=== PATIENT | female | born 1960 | race African-American/Black ===

== ENCOUNTER 2018-09-14 15:39 | Inpatient (IN) | payer MEDICAID ==
[~2018-09-14] VITALS: Ht 172.7 cm; Wt 75.3 kg
[~2018-09-14 15:39] MED LIST: BENZ2TAB5 PO; CLON0.5T11 PO; KETO120S2 TP; LISI-334 PO; MAGN400O7 PO; MULT1TAB52 PO; OLAN5TAB9 PO; RISP37.5 IM; VITA400C37 PO
--- NOTE | 2018-09-14 16:04 | PHYS DOC ---
Past Medical History Past Medical History: Constipation, Dementia, Hypertension, Schizophrenia Past Surgical History: No Surgical History Additional Past Surgical Histo: Pt denies previous surgery Alcohol Use: None Drug Use: None Adult General Chief Complaint Chief Complaint: GENERAL COMPLAINT HPI HPI Patient is a 58 year old female with history of hypertension, dementia, schizophrenia, who was brought to the ED per EMS from the local residential. Per report from EMS patient had altered mental status change. Patient has schizophrenia and today her behavior was not normal. Patient arrives in the ED with lipstick smeared throughout her face. She is alert and oriented to self only. EMS crew also reports patient was diagnosed with pneumonia and discharged from the hospital a couple days ago. Review of Systems Review of Systems Constitutional: Denies fever or chills [] Eyes: Denies change in visual acuity, redness, or eye pain [] HENT: Denies nasal congestion or sore throat [] Respiratory: Denies cough or shortness of breath [] Cardiovascular: No additional information not addressed in HPI [] GI: Denies abdominal pain, nausea, vomiting, bloody stools or diarrhea [] : Denies dysuria or hematuria [] Musculoskeletal: Denies back pain or joint pain [] Integument: Denies rash or skin lesions [] Neurologic: AMS change. Denies headache, focal weakness or sensory changes [] All other systems were reviewed and found to be within normal limits, except as documented in this note. Current Medications Current Medications Current Medications Medications (Trade) Dose Ordered Sig/Chandu Start Time Stop Time Status Last Admin Dose Admin Acetaminophen (Tylenol) 650 mg PRN Q4HRS PRN 09/14/18 17:15 09/15/18 17:14 Clonidine HCl (Catapres) 0.1 mg PRN Q6HRS PRN 09/14/18 17:15 Labetalol HCl (Normodyne Iv Push) 10 mg 1X ONCE 09/14/18 16:15 09/14/18 16:16 DC Ondansetron HCl (Zofran) 4 mg PRN Q8HRS PRN 09/14/18 17:15 09/15/18 17:14 Piperacillin Sod/ Tazobactam Sod 3.375 gm/Sodium Chloride 50 ml @ 100 mls/hr 1X ONCE 09/14/18 17:15 09/14/18 17:44 Potassium Chloride (Klor-Con) 40 meq 1X ONCE 09/14/18 17:15 09/14/18 17:16 DC Sodium Chloride 1,000 ml @ 75 mls/hr 1X ONCE 09/14/18 17:15 09/15/18 06:34 Vancomycin HCl (Vanco Per Pharmacy) 1 each PRN DAILY PRN 09/14/18 17:15 UNV Vancomycin HCl 1.75 gm/Sodium Chloride 500 ml @ 250 mls/hr 1X ONCE 09/14/18 17:15 09/14/18 19:14 Allergies Allergies Allergies Coded Allergies Type Severity Reaction Last Updated Verified No Known Drug Allergies 08/29/18 No Physical Exam Physical Exam Constitutional: Well developed, well nourished, no acute distress, non-toxic appearance. [] HENT: Normocephalic, atraumatic, bilateral external ears normal, oropharynx moist, no oral exudates, nose normal. [] Eyes: PERRLA, EOMI, conjunctiva normal, no discharge. [] Neck: Normal range of motion, no tenderness, supple, no stridor. [] Cardiovascular:Heart rate regular rhythm, no murmur [] Lungs & Thorax: Diminished breath sounds to posterior lung bases Abdomen: Bowel sounds normal, soft, no tenderness, no masses, no pulsatile masses. [] Skin: Warm, dry, no erythema, no rash. [] Back: No tenderness, no CVA tenderness. [] Extremities: No tenderness, no cyanosis, no clubbing, ROM intact, no edema. [] Neurologic: Alert and oriented X 1, normal motor function, normal sensory function, no focal deficits noted. Cranial nerves II through XII intact Psychologic: Flat affect, has lipstick all over her face Current Patient Data Vital Signs Vital Signs Date Time Temp Pulse Resp B/P (MAP) Pulse Ox O2 Delivery O2 Flow Rate FiO2 09/14/18 15:39 98.9 92 20 221/109 (146) 94 Room Air 98.9 Lab Values Laboratory Tests Test 09/14/18 16:09 09/14/18 16:50 White Blood Count 7.6 x10^3/uL (4.0-11.0) Red Blood Count 3.67 x10^6/uL (3.50-5.40) Hemoglobin 11.7 g/dL (12.0-15.5) L Hematocrit 34.5 % (36.0-47.0) L Mean Corpuscular Volume 94 fL (79-100) Mean Corpuscular Hemoglobin 32 pg (25-35) Mean Corpuscular Hemoglobin Concent 34 g/dL (31-37) Red Cell Distribution Width 15.2 % (11.5-14.5) H Platelet Count 537 x10^3/uL (140-400) H Neutrophils (%) (Auto) 64 % (31-73) Lymphocytes (%) (Auto) 28 % (24-48) Monocytes (%) (Auto) 6 % (0-9) Eosinophils (%) (Auto) 1 % (0-3) Basophils (%) (Auto) 1 % (0-3) Neutrophils # (Auto) 4.8 x10^3uL (1.8-7.7) Lymphocytes # (Auto) 2.1 x10^3/uL (1.0-4.8) Monocytes # (Auto) 0.4 x10^3/uL (0.0-1.1) Eosinophils # (Auto) 0.1 x10^3/uL (0.0-0.7) Basophils # (Auto) 0.1 x10^3/uL (0.0-0.2) Sodium Level 143 mmol/L (136-145) Potassium Level 3.2 mmol/L (3.5-5.1) L Chloride Level 105 mmol/L (98-107) Carbon Dioxide Level 30 mmol/L (21-32) Anion Gap 8 (6-14) Blood Urea Nitrogen 5 mg/dL (7-20) L Creatinine 0.8 mg/dL (0.6-1.0) Estimated GFR (Cockcroft-Gault) 88.5 BUN/Creatinine Ratio 6 (6-20) Glucose Level 98 mg/dL (70-99) Calcium Level 9.5 mg/dL (8.5-10.1) Magnesium Level 1.8 mg/dL (1.8-2.4) Total Bilirubin 0.4 mg/dL (0.2-1.0) Aspartate Amino Transferase (AST) 23 U/L (15-37) Alanine Aminotransferase (ALT) 20 U/L (14-59) Alkaline Phosphatase 105 U/L (46-116) Troponin I Quantitative < 0.017 ng/mL (0.000-0.055) II-Vtw-V-Type Natriuretic Peptide 74 pg/mL (0-124) Total Protein 7.9 g/dL (6.4-8.2) Albumin 2.8 g/dL (3.4-5.0) L Albumin/Globulin Ratio 0.5 (1.0-1.7) L Lipase 101 U/L (73-393) Lactic Acid Level 1.0 mmol/L (0.4-2.0) Laboratory Tests 09/14/18 16:09 Laboratory Tests 09/14/18 16:09 EKG EKG 16:[address] Inman sinus rhythm HR 90 no STEMI[] Radiology/Procedures Radiology/Procedures []PROCEDURE: CT HEAD WO CONTRAST CT HEAD WO CONTRAST dated 09/14/2018 4:23 PM Indication:ALTERED MENTAL STATUS
HX OF DEMENTIA, NO PRIORS Comparison: No comparison is available. Technique: Noncontrast images were performed. One or more of the following individualized dose reduction techniques were utilized for this examination: 1. Automated exposure control 2. Adjustment of the mA and/or kV according to patient size 3. Use of iterative reconstruction technique Findings: There is no apparent intracranial mass, hemorrhage or abnormal extra-axial fluid collection. Mild low-attenuation in the cerebral white matter most commonly relates to chronic small vessel ischemic injury. No other area of abnormal density is seen. The ventricles and basilar cisterns are normally positioned. The sinuses and mastoid air cells appear clear. IMPRESSION: No apparent acute intracranial abnormality. Electronically signed by: Polly Moreno Jr., MD (09/14/2018 4:39 PM) [facility] [place]CTATED and SIGNED BY: POLLY MORENO Jr, MD DATE: 09/14/18 1637 PROCEDURE: PORTABLE CHEST 1V AP chest x-ray COMPARISON: Chest x-ray August 31, 2018. HISTORY: Altered mental status. FINDINGS: Heart size stable. Tortuosity and calcified plaque aortic arch is stable. Right hilar calcified granulomas. Improvement of the right upper and lower lobe pulmonary infiltrates. The mild right pleural effusion is also decreased. However there is increased opacity of the basilar left lower lobe partially obscuring the diaphragm, small left pleural effusion is not excluded. IMPRESSION: 1. Development of left lower lobe basilar pulmonary infiltrate, a small coinciding left pleural effusion is not excluded. 2. Improvement of the right pulmonary infiltrates. Electronically signed by: Maxim Keith MD (09/14/2018 4:16 PM) [facility] DICTATED and SIGNED BY: MAXIM KEITH MD DATE: 09/14/18 1614 Course & Med Decision Making Course & Med Decision Making Pertinent Labs and Imaging studies reviewed. (See chart for details) This is a 4-year-old female patient presenting to the ED today from the residential for altered mental status change. Patient has schizophrenia but is stating her behavior today was not normal. She arrives in the ED with lipstick smeared throughout her face. She is alert and oriented to self only. Her blood pressure was 221/109 HR in the 90s on arrival to the ED, labetalol IV was ordered. CBC with a normal WBC, CMP with potassium of 3.2, patient was given oral potassium replacement. CT of the head was negative for any acute findings, chest x-ray was noted for left lower lobe pneumonia. There is improvement on the right lobe pneumonia. Blood cultures were ordered as well as lactic. Consulted with who accepted patient for admission. Patient was started on vancomycin and Zosyn Dragon Disclaimer Dragon Disclaimer This electronic medical record was generated, in whole or in part, using a voice recognition dictation system. Departure Departure Impression: Primary Impression: Accelerated hypertension Additional Impressions: Pneumonia Altered mental state Disposition: 09 ADMITTED INPATIENT Condition: STABLE Referrals: BRAD CAMPA (PCP) Problem Qualifiers Additional Impressions: Pneumonia Pneumonia type: due to unspecified organism Laterality: left Lung location : lower lobe of lung Qualified Codes: J18.1 - Lobar pneumonia, unspecified organism Altered mental state Altered mental status type: unspecified Qualified Codes: R41.82 - Altered mental status, unspecified MUTINDYAMENG KETTLE TENDER Sep 14, 2018 16:04
[2018-09-14] MEDS ORDERED: LABETALOL 20 MG/4 ML DISP.SYRIN. IVP ONE (16:15)
--- NOTE | 2018-09-14 16:19 | RAD ---
AP chest x-ray COMPARISON: Chest x-ray August 31, 2018. HISTORY: Altered mental status. FINDINGS: Heart size stable. Tortuosity and calcified plaque aortic arch is stable. Right hilar calcified granulomas. Improvement of the right upper and lower lobe pulmonary infiltrates. The mild right pleural effusion is also decreased. However there is increased opacity of the basilar left lower lobe partially obscuring the diaphragm, small left pleural effusion is not excluded. IMPRESSION: 1. Development of left lower lobe basilar pulmonary infiltrate, a small coinciding left pleural effusion is not excluded. 2. Improvement of the right pulmonary infiltrates. Electronically signed by: Juan Pablo Keith MD (09/14/2018 4:16 PM) [facility]
[2018-09-14 16:28] LABS: BASO # 0.1 x10^3/uL (0.0-0.2); BASO % 1 % (0-3); EOS # 0.1 x10^3/uL (0.0-0.7); EOS % 1 % (0-3); HEMATOCRIT 34.5 % (36.0-47.0); HEMOGLOBIN 11.7 g/dL (12.0-15.5); LYMPH # 2.1 x10^3/uL (1.0-4.8); LYMPH % 28 % (24-48); MEAN CORPUSCULAR HEMOGLOBIN 32 pg (25-35); MEAN CORPUSCULAR HGB CONC 34 g/dL (31-37); MEAN CORPUSCULAR VOLUME 94 fL (79-100); MONO # 0.4 x10^3/uL (0.0-1.1); MONO % 6 % (0-9); NEUT # 4.8 x10^3uL (1.8-7.7); NEUT % 64 % (31-73); PLATELET COUNT 537 x10^3/uL (140-400); RED BLOOD COUNT 3.67 x10^6/uL (3.50-5.40); RED CELL DISTRIBUTION WIDTH 15.2 % (11.5-14.5); WHITE BLOOD COUNT 7.6 x10^3/uL (4.0-11.0)
[2018-09-14 16:38] LABS: CALCIUM 9.5 mg/dL (8.5-10.1); CREATININE 0.8 mg/dL (0.6-1.0); GFR 88.5; POTASSIUM 3.2 mmol/L (3.5-5.1)
--- NOTE | 2018-09-14 16:42 | RAD ---
CT HEAD WO CONTRAST dated 09/14/2018 4:23 PM Indication:ALTERED MENTAL STATUS
HX OF DEMENTIA, NO PRIORS Comparison: No comparison is available. Technique: Noncontrast images were performed. One or more of the following individualized dose reduction techniques were utilized for this examination: 1. Automated exposure control 2. Adjustment of the mA and/or kV according to patient size 3. Use of iterative reconstruction technique Findings: There is no apparent intracranial mass, hemorrhage or abnormal extra-axial fluid collection. Mild low-attenuation in the cerebral white matter most commonly relates to chronic small vessel ischemic injury. No other area of abnormal density is seen. The ventricles and basilar cisterns are normally positioned. The sinuses and mastoid air cells appear clear. IMPRESSION: No apparent acute intracranial abnormality. Electronically signed by: Sim Moreno Jr., MD (09/14/2018 4:39 PM) [facility] [place] [facility] [place]
[2018-09-14 16:44] LABS: ALBUMIN 2.8 g/dL (3.4-5.0); ALBUMIN/GLOBULIN RATIO 0.5 (1.0-1.7); MAGNESIUM 1.8 mg/dL (1.8-2.4); TOTAL BILIRUBIN 0.4 mg/dL (0.2-1.0); TOTAL PROTEIN 7.9 g/dL (6.4-8.2)
[2018-09-14] MEDS ORDERED: ACETAMINOPHEN 325 MG TABLET. PO PRN (17:15)
[2018-09-14] MEDS ORDERED: VANCOMYCIN 1.75 GM in IV NORMAL SALINE 500ML BAG 500 ML IV ONE (17:15)
[2018-09-14] MEDS ORDERED: POTASSIUM CHLORIDE 20 MEQ TABLET.ER. PO ONE (17:15)
[2018-09-14] MEDS ORDERED: PIPERACILLIN/TAZOBACTAM 3.375 GM in IV NORMAL SALINE 50ML 50 ML IV ONE (17:15)
[2018-09-14] MEDS ORDERED: IV NORMAL SALINE 1000ML BAG 1,000 ML IV ONE (17:15)
[2018-09-14] MEDS ORDERED: ONDANSETRON PF 4 MG/2 ML VIAL. IV PRN ×2 (17:15→20:30)
[2018-09-14] MEDS ORDERED: VANCOMYCIN PER PHARMACY MC PRN (17:15)
[2018-09-14] MEDS ORDERED: cloNIDine HCL 0.1 MG TABLET PO PRN (17:15)
--- NOTE | 2018-09-14 17:49 | PDOC1 ---
History and Physical Date of Admission Date of Admission DATE: 09/14/18 TIME: 17:49 Identification/Chief Complaint Chief Complaint Acute encephalopathy LLL Pneumonia/HCAP HTN Urgency Hypokalemia History of Present Illness History of Present Illness 58 year old female w/PMHx hypertension, dementia, schizophrenia, who was brought to the ED per EMS from the local assisted. She has been acting more unusually. Patient has schizophrenia and today her behavior was not normal. Patient arrives in the ED with lipstick smeared throughout her face. She is alert and oriented to self only. EMS crew also reports patient was diagnosed with pneumonia and discharged from the hospital a couple days ago, treated for RUL pneumonia. In ED she was noted on CXR with LLL infiltrate, productive cough, much more confused than her baseline and BP was 221/109. She was also noted with potassium of 3.2. She will be admitted for accelerated HTN with encephalopathy likely 2/2 this as well as LLL HCAP. Past Medical History Cardiovascular: HTN Past Surgical History Past Surgical History: No pertinent history Family History Family History: High Cholestrol Social History ALCOHOL: none Drugs: None Current Medications Current Medications Current Medications Labetalol HCl (Normodyne Iv Push) 10 mg 1X ONCE IVP ; Start 09/14/18 at 16:15 ; Stop 09/14/18 at 16:16; Status DC Piperacillin Sod/ Tazobactam Sod 3.375 gm/Sodium Chloride 50 ml @ 100 mls/hr Q8HRS IV ; Start 09/14/18 at 22:00; Status UNV Vancomycin HCl (Vanco Per Pharmacy) 1 each PRN DAILY PRN MC SEE COMMENTS; Start 09/14/18 at 17:15; Status UNV Potassium Chloride (Klor-Con) 40 meq 1X ONCE PO ; Start 09/14/18 at 17:15; Stop 09/14/18 at 17:16; Status DC Clonidine HCl (Catapres) 0.1 mg PRN Q6HRS PRN PO ELEVATED BP, SEE COMMENTS; Start 09/14/18 at 17:15 Ondansetron HCl (Zofran) 4 mg PRN Q8HRS PRN IV NAUSEA/VOMITING; Start at 17:15; Stop 09/15/18 at 17:14 Acetaminophen (Tylenol) 650 mg PRN Q4HRS PRN PO FEVER; Start 09/14/18 at 17:15 ; Stop 09/15/18 at 17:14 Sodium Chloride 1,000 ml @ 75 mls/hr 1X ONCE IV ; Start 09/14/18 at 17:15; Stop 09/15/18 at 06:34 Vancomycin HCl 1.75 gm/Sodium Chloride 500 ml @ 250 mls/hr 1X ONCE IV ; Start 09/14/18 at 17:15; Stop 09/14/18 at 19:14 Piperacillin Sod/ Tazobactam Sod 3.375 gm/Sodium Chloride 50 ml @ 100 mls/hr 1X ONCE IV ; Start 09/14/18 at 17:15; Stop 09/14/18 at 17:44; Status DC Active Scripts Active Reported Vitamin E (Vitamin E Acetate) 400 Unit Capsule 800 Unit PO BID Risperdal Consta (Risperidone Microspheres) 37.5 Mg/2 Ml Disp.syrin 50 Mg IM Q2WKS Olanzapine 5 Mg Tablet 1 Tab PO BID Multivitamins (Multivitamin) 1 Each Tablet 1 Tab PO DAILY Milk Of Magnesia (Magnesium Hydroxide) 400 Mg/5 Ml Oral.susp 30 Ml PO PRN DAILY PRN Lisinopril 20 Mg Tablet 1 Tab PO HS Benztropine Mesylate 2 Mg Tablet 1 Tab PO BID Ketoconazole 120 Ml Shampoo 1 Yani TP QTH Clonazepam 0.5 Mg Tablet 1 Tab PO BID Allergies Allergies: Coded Allergies: No Known Drug Allergies (Unverified , 08/29/18) ROS General: YES: Fatigue; No: Chills, Night Sweats, Malaise, Appetite, Other PSYCHOLOGICAL ROS: YES: Anxiety, Behavioral Disorder, Irritablity, Obsessive thoughts Eyes: Yes Dry eyes; No Blurry vision, No Decreased vision, No Double vision, No Excessive tearing , No Eye Pain, No Itchy Eyes, No Loss of vision, No Photophobia, No Scotomata, No Uses contacts, No Uses glasses, No Other HEENT: No: Heacaches, Visual Changes, Hearing change, Nasal congestion, Nasal discharge, Oral lesions, Sinus pain, Sore Throat, Epistaxis, Sneezing, Snoring, Tinnitus, Vertigo, Vocal changes, Other ALLERGY AND IMMUNOLOGY: No: Hives, Insect Bite Sensitivity, Itchy/Watery Eyes, Nasal Congestion, Post Nasal Drip, Seasonal Allergies, Other Hematological and Lymphatic: No: Bleeding Problems, Blood Clots, Blood Transfusions, Brusing, Night Sweats, Pallor, Swollen Lymph Nodes, Other ENDOCRINE: No: Breast Changes, Galactorrhea, Hair Pattern Changes, Hot Flashes , Malaise/lethargy, Mood Swings, Palpitations, Polydipsia/polyuria, Skin Changes , Temperature Intolerance, Unexpected Weight Changes, Other Breast: No New/Changing Breast Lumps, No Nipple changes, No Nipple discharge, No Other Respiratory: YES: Cough, Shortness of breath, Sputum Changes, Tachypnea; No: Hemoptysis, Orthopnea, Pleuritic Pain, SOB with excertion, Stridor, Wheezing, Other Cardiovascular: No Chest Pain, No Palpitations, No Orthopnea, No Paroxysmal Noc. Dyspnea, No Edema, No Lt Headedness, No Other Gastrointestinal: No Nausea, No Vomiting, No Abdominal Pain, No Diarrhea, No Constipation, No Melena, No Hematochezia, No Other Genitourinary: YES Dysuria; No Frequency, No Incontinence, No Hematuria, No Retention, No Discharge, No Urgency, No Pain, No Flank Pain, No Other, No , No , No , No , No , No , No Musculoskeletal: No Gait Disturbance, No Joint Pain, No Joint Stiffness, No Joint Swelling, No Muscle Pain, No Muscular Weakness, No Pain In:, No Swelling In:, No Other Neurological: Yes Behavorial Changes, Yes Confusion, Yes Headaches, Yes Impaired Coord/balance, Yes Memory Loss; No Bowel/Bladder ControlChng, No Dizziness, No Gait Disturbance, No Numbness/ Tingling, No Seizures, No Speech Problems, No Tremors, No Visual Changes, No Weakness, No Other Skin: No Dry Skin, No Eczema, No Hair Changes, No Lumps, No Mole Changes, No Mottling, No Nail Changes, No Pruritus, No Rash, No Skin Lesion Changes, No Other, No Acne Physical Exam General: Alert, Cooperative, No acute distress HEENT: Atraumatic, PERRLA, EOMI, Mucous membr. moist/pink Lungs: Other (Bilateral rhonchorous breath sounds with scattered wheezes) Heart: S1S2, RRR, no murmurs Abdomen: Normal bowel sounds, Soft, No tenderness, No hepatosplenomegaly, No masses Extremities: No clubbing, No cyanosis, No edema, Normal pulses, No tenderness/ swelling Skin: No rashes, No breakdown, No significant lesion Neuro: Normal gait, Normal speech, Strength at 5/5 X4 ext, Normal tone, Sensation intact, Cranial nerves 3-12 NL, Reflexes 2+ Psych/Mental Status: Mood NL Vitals Vitals Vital Signs Date Time Temp Pulse Resp B/P (MAP) Pulse Ox O2 Delivery O2 Flow Rate FiO2 09/14/18 15:39 98.9 92 20 221/109 (146) 94 Room Air 98.9 Labs Labs Laboratory Tests Test 09/14/18 16:09 09/14/18 16:50 White Blood Count 7.6 x10^3/uL (4.0-11.0) Red Blood Count 3.67 x10^6/uL (3.50-5.40) Hemoglobin 11.7 g/dL (12.0-15.5) Hematocrit 34.5 % (36.0-47.0) Mean Corpuscular Volume 94 fL (79-100) Mean Corpuscular Hemoglobin 32 pg (25-35) Mean Corpuscular Hemoglobin Concent 34 g/dL (31-37) Red Cell Distribution Width 15.2 % (11.5-14.5) Platelet Count 537 x10^3/uL (140-400) Neutrophils (%) (Auto) 64 % (31-73) Lymphocytes (%) (Auto) 28 % (24-48) Monocytes (%) (Auto) 6 % (0-9) Eosinophils (%) (Auto) 1 % (0-3) Basophils (%) (Auto) 1 % (0-3) Neutrophils # (Auto) 4.8 x10^3uL (1.8-7.7) Lymphocytes # (Auto) 2.1 x10^3/uL (1.0-4.8) Monocytes # (Auto) 0.4 x10^3/uL (0.0-1.1) Eosinophils # (Auto) 0.1 x10^3/uL (0.0-0.7) Basophils # (Auto) 0.1 x10^3/uL (0.0-0.2) Sodium Level 143 mmol/L (136-145) Potassium Level 3.2 mmol/L (3.5-5.1) Chloride Level 105 mmol/L (98-107) Carbon Dioxide Level 30 mmol/L (21-32) Anion Gap 8 (6-14) Blood Urea Nitrogen 5 mg/dL (7-20) Creatinine 0.8 mg/dL (0.6-1.0) Estimated GFR (Cockcroft-Gault) 88.5 BUN/Creatinine Ratio 6 (6-20) Glucose Level 98 mg/dL (70-99) Calcium Level 9.5 mg/dL (8.5-10.1) Magnesium Level 1.8 mg/dL (1.8-2.4) Total Bilirubin 0.4 mg/dL (0.2-1.0) Aspartate Amino Transf (AST/SGOT) 23 U/L (15-37) Alanine Aminotransferase (ALT/SGPT) 20 U/L (14-59) Alkaline Phosphatase 105 U/L (46-116) Troponin I Quantitative < 0.017 ng/mL (0.000-0.055) RA-Ejb-S-Type Natriuretic Peptide 74 pg/mL (0-124) Total Protein 7.9 g/dL (6.4-8.2) Albumin 2.8 g/dL (3.4-5.0) Albumin/Globulin Ratio 0.5 (1.0-1.7) Lipase 101 U/L (73-393) Lactic Acid Level 1.0 mmol/L (0.4-2.0) Laboratory Tests Test 09/14/18 16:09 09/14/18 16:50 White Blood Count 7.6 x10^3/uL (4.0-11.0) Red Blood Count 3.67 x10^6/uL (3.50-5.40) Hemoglobin 11.7 g/dL (12.0-15.5) Hematocrit 34.5 % (36.0-47.0) Mean Corpuscular Volume 94 fL (79-100) Mean Corpuscular Hemoglobin 32 pg (25-35) Mean Corpuscular Hemoglobin Concent 34 g/dL (31-37) Red Cell Distribution Width 15.2 % (11.5-14.5) Platelet Count 537 x10^3/uL (140-400) Neutrophils (%) (Auto) 64 % (31-73) Lymphocytes (%) (Auto) 28 % (24-48) Monocytes (%) (Auto) 6 % (0-9) Eosinophils (%) (Auto) 1 % (0-3) Basophils (%) (Auto) 1 % (0-3) Neutrophils # (Auto) 4.8 x10^3uL (1.8-7.7) Lymphocytes # (Auto) 2.1 x10^3/uL (1.0-4.8) Monocytes # (Auto) 0.4 x10^3/uL (0.0-1.1) Eosinophils # (Auto) 0.1 x10^3/uL (0.0-0.7) Basophils # (Auto) 0.1 x10^3/uL (0.0-0.2) Sodium Level 143 mmol/L (136-145) Potassium Level 3.2 mmol/L (3.5-5.1) Chloride Level 105 mmol/L (98-107) Carbon Dioxide Level 30 mmol/L (21-32) Anion Gap 8 (6-14) Blood Urea Nitrogen 5 mg/dL (7-20) Creatinine 0.8 mg/dL (0.6-1.0) Estimated GFR (Cockcroft-Gault) 88.5 BUN/Creatinine Ratio 6 (6-20) Glucose Level 98 mg/dL (70-99) Calcium Level 9.5 mg/dL (8.5-10.1) Magnesium Level 1.8 mg/dL (1.8-2.4) Total Bilirubin 0.4 mg/dL (0.2-1.0) Aspartate Amino Transf (AST/SGOT) 23 U/L (15-37) Alanine Aminotransferase (ALT/SGPT) 20 U/L (14-59) Alkaline Phosphatase 105 U/L (46-116) Troponin I Quantitative < 0.017 ng/mL (0.000-0.055) BY-Ykw-O-Type Natriuretic Peptide 74 pg/mL (0-124) Total Protein 7.9 g/dL (6.4-8.2) Albumin 2.8 g/dL (3.4-5.0) Albumin/Globulin Ratio 0.5 (1.0-1.7) Lipase 101 U/L (73-393) Lactic Acid Level 1.0 mmol/L (0.4-2.0) VTE Prophylaxis Ordered VTE Prophylaxis Devices: Yes VTE Pharmacological Prophylaxi: Yes Assessment/Plan Assessment/Plan A/P: LLL pneumonia - HCAP from psych facility, on zosyn, vanco. Hypoxia - not on O2, likely related to pneumonia, pleural effusions. Cont to wean O2 as tolerated. Cont acapella today Schizophrenia - not controlled today Acute encephalopathy - likely 2/2 HTN vs schizophrenia HTN Urgency/Emergency - with encephalopathy likely2/[address] on labetalol and hydralazine Hypokalemia - replace FEN - gen diet PPX - heparin FULL CODE Inpatient for at least 2 midnights for above issues. CLARIBEL BARRIOS MD Sep 14, 2018 17:49
[2018-09-14] MEDS: VANCOMYCIN PER PHARMACY MC PRN (19:29)
[2018-09-14] MEDS ORDERED: LACTULOSE 20 GM/30 ML SOLUTION. PO PRN (20:30)
[2018-09-14] MEDS ORDERED: LABETALOL 20 MG/4 ML DISP.SYRIN. IVP PRN (20:30)
[2018-09-14] MEDS ORDERED: hydrALAZINE 10 MG TABLET PO PRN (20:30)
[2018-09-14] MEDS ORDERED: MAGNESIUM HYDROXIDE 2,400 MG/30 ML ORAL.SUSP. PO PRN (20:45)
[2018-09-14] MEDS: IPRATRPIUM/ALBUTEROL 0.5/2.5MG 3 ML NEBU. NEB SCH ×2 (21:00→21:32)
[2018-09-14] MEDS ORDERED: LISINOPRIL 20 MG TABLET PO SCH (21:00)
[2018-09-14] MEDS: VITAMIN E 200 UNIT CAPSULE. PO SCH (21:29)
[2018-09-14] MEDS: SENNOSIDES/DOCUSATE 8.6/50MG TABLET. PO SCH (21:29)
[2018-09-14] MEDS: OLANZapine 5 MG TABLET PO SCH (21:30)
[2018-09-14] MEDS: BENZTROPINE MESYLATE 1 MG TABLET. PO SCH (21:30)
[2018-09-14] MEDS: clonazePAM 0.5 MG TABLET PO SCH (21:30)
[2018-09-14] MEDS: HEPARIN for SUB-Q USE 5,000 UNIT/ML VIAL. SQ SCH (21:34)
[2018-09-14 22:00] VITALS: BP 171/86
[2018-09-14] MEDS ORDERED: PIPERACILLIN/TAZOBACTAM 3.375 GM in IV NORMAL SALINE 50ML 50 ML IV SCH (22:00)
[2018-09-14] MEDS: PIPERACILLIN/TAZOBACTAM 3.375 GM in IV NORMAL SALINE 50ML 50 ML IV SCH (22:44)
[2018-09-14 23:00] VITALS: BP 174/89
[2018-09-15 03:00] VITALS: BP 141/82
[2018-09-15] MEDS: PIPERACILLIN/TAZOBACTAM 3.375 GM in IV NORMAL SALINE 50ML 50 ML IV SCH ×3 (05:12→21:33)
[2018-09-15] MEDS: VANCOMYCIN 1 GM in IV NORMAL SALINE 250ML 250 ML IV SCH ×2 (05:14→17:36)
[2018-09-15] MEDS: HEPARIN for SUB-Q USE 5,000 UNIT/ML VIAL. SQ SCH ×3 (05:15→21:37)
[2018-09-15 07:00] VITALS: BP 179/99
[2018-09-15] MEDS: IPRATRPIUM/ALBUTEROL 0.5/2.5MG 3 ML NEBU. NEB SCH ×4 (07:33→20:07)
--- NOTE | 2018-09-15 08:05 | EKG ---
[facility] [address] [place] [address] Test Date: 2018-09-14 Test Time: 16:04:45 Pat Name: BEAR PEREZ Department: Room: 508 1 Gender: F Waste Hand: : 1960 Requested By: MENG VALENZUELA Order Number: [id number] Reading MD: Zbigniew Georges MD Measurements Intervals [place] Rate: 90 P: -6 WV: 106 QRS: 24 QRSD: 88 T: 6 QT: 422 QTc: 521 Interpretive Statements SINUS RHYTHM LEFT ATRIAL ABNORMALITY PROLONGED QT ABNORMAL ECG Electronically Signed On 09-15-2018 9:49:13 CDT by Zbigniew Georges MD
[2018-09-15] MEDS: clonazePAM 0.5 MG TABLET PO SCH ×2 (08:12→20:42)
[2018-09-15] MEDS: OLANZapine 5 MG TABLET PO SCH ×2 (08:12→20:41)
[2018-09-15] MEDS: MULTIVITAMIN with MINERAL TABLET. PO SCH (08:12)
[2018-09-15] MEDS: BENZTROPINE MESYLATE 1 MG TABLET. PO SCH ×2 (08:12→20:42)
[2018-09-15] MEDS: SENNOSIDES/DOCUSATE 8.6/50MG TABLET. PO SCH ×2 (08:12→20:42)
[2018-09-15] MEDS: VITAMIN E 200 UNIT CAPSULE. PO SCH ×2 (08:12→20:41)
[2018-09-15 09:10] LABS: BASO % 1 % (0-3); EOS # 0.1 x10^3/uL (0.0-0.7); EOS % 1 % (0-3); HEMOGLOBIN 10.6 g/dL (12.0-15.5); LYMPH # 1.1 x10^3/uL (1.0-4.8); LYMPH % 12 % (24-48); MEAN CORPUSCULAR HEMOGLOBIN 32 pg (25-35); MEAN CORPUSCULAR HGB CONC 33 g/dL (31-37); MEAN CORPUSCULAR VOLUME 95 fL (79-100); MONO # 0.6 x10^3/uL (0.0-1.1); MONO % 6 % (0-9); NEUT # 7.2 x10^3uL (1.8-7.7); NEUT % 80 % (31-73); PLATELET COUNT 474 x10^3/uL (140-400); RED BLOOD COUNT 3.37 x10^6/uL (3.50-5.40); RED CELL DISTRIBUTION WIDTH 14.9 % (11.5-14.5)
[2018-09-15 09:20] LABS: CALCIUM 8.9 mg/dL (8.5-10.1); CREATININE 1.3 mg/dL (0.6-1.0); GFR 50.6; POTASSIUM 3.9 mmol/L (3.5-5.1)
[2018-09-15] MEDS ORDERED: LABETALOL 20 MG/4 ML DISP.SYRIN. IVP PRN (09:45)
[2018-09-15] MEDS ORDERED: MORPHINE SULFATE 2 MG/ML VIAL. IV PRN (09:45)
[2018-09-15] MEDS ORDERED: DOCUSATE SODIUM 100 MG CAPSULE. PO PRN (09:45)
[2018-09-15] MEDS ORDERED: traMADol 50 MG TABLET PO PRN (09:45)
[2018-09-15] MEDS ORDERED: ACETAMINOPHEN 325 MG TABLET. PO PRN (09:45)
[2018-09-15] MEDS ORDERED: ONDANSETRON PF 4 MG/2 ML VIAL. IV PRN (09:45)
[2018-09-15] MEDS: IV DEXTROSE 5% 1,000 ML IV SCH ×2 (10:07→21:33)
[2018-09-15 11:00] VITALS: BP 154/88
[2018-09-15] MEDS: amLODIPine BESYLATE 10 MG TABLET PO SCH (11:10)
[2018-09-15] MEDS ORDERED: ALBUTEROL SULFATE 2.5 MG/3 ML NEBU. NEB PRN (11:45)
--- NOTE | 2018-09-15 11:49 | PDOC ---
PROGRESS NOTES Chief Complaint Chief Complaint AMS, 2/2 HTN urgency plus schizophrenia LLL pneumonia , HAP Hypoxia Schizophrenia - Acute encephalopathy - likely 2/2 HTN vs schizophrenia HTN Urgency Hypokalemia plan; cont vanco , zosyn for now, NC as needed d5 for now, repeat BMp later, hold lisinopril for now cont home psych meds labetolol , hydralazine prn for htn History of Present Illness History of Present Illness ROS: no fever, chills, sob or chest pain pt looks ok today mild confusion with days, otherwise answer questions ok. denies cough or sob, knows hops, not know why she was sent. She was sent since was found acting werid, with lipsticks in face. Cr 1.3 form 0.9, Na 150 was dced 2ds ago for PNA Vitals Vitals Vital Signs Date Time Temp Pulse Resp B/P (MAP) Pulse Ox O2 Delivery O2 Flow Rate FiO2 09/15/18 11:30 Room Air 09/15/18 11:10 75 154/88 09/15/18 07:33 99 09/15/18 07:00 97.5 18 97.5 Physical Exam Physical Exam aaox2, not to day General: Alert, Cooperative, No acute distress Heart: Regular rate, Normal S1, Normal S2 Lungs: Clear Abdomen: Normal bowel sounds, Soft, No tenderness, No hepatosplenomegaly, No masses Extremities: No clubbing, No cyanosis, No edema, Normal pulses, No tenderness/ swelling Skin: No rashes, No breakdown, No significant lesion Labs LABS Laboratory Tests Test 09/14/18 16:09 09/14/18 16:50 09/15/18 08:50 White Blood Count 7.6 x10^3/uL (4.0-11.0) 9.0 x10^3/uL (4.0-11.0) Red Blood Count 3.67 x10^6/uL (3.50-5.40) 3.37 x10^6/uL (3.50-5.40) Hemoglobin 11.7 g/dL (12.0-15.5) 10.6 g/dL (12.0-15.5) Hematocrit 34.5 % (36.0-47.0) 32.0 % (36.0-47.0) Mean Corpuscular Volume 94 fL (79-100) 95 fL (79-100) Mean Corpuscular Hemoglobin 32 pg (25-35) 32 pg (25-35) Mean Corpuscular Hemoglobin Concent 34 g/dL (31-37) 33 g/dL (31-37) Red Cell Distribution Width 15.2 % (11.5-14.5) 14.9 % (11.5-14.5) Platelet Count 537 x10^3/uL (140-400) 474 x10^3/uL (140-400) Neutrophils (%) (Auto) 64 % (31-73) 80 % (31-73) Lymphocytes (%) (Auto) 28 % (24-48) 12 % (24-48) Monocytes (%) (Auto) 6 % (0-9) 6 % (0-9) Eosinophils (%) (Auto) 1 % (0-3) 1 % (0-3) Basophils (%) (Auto) 1 % (0-3) 1 % (0-3) Neutrophils # (Auto) 4.8 x10^3uL (1.8-7.7) 7.2 x10^3uL (1.8-7.7) Lymphocytes # (Auto) 2.1 x10^3/uL (1.0-4.8) 1.1 x10^3/uL (1.0-4.8) Monocytes # (Auto) 0.4 x10^3/uL (0.0-1.1) 0.6 x10^3/uL (0.0-1.1) Eosinophils # (Auto) 0.1 x10^3/uL (0.0-0.7) 0.1 x10^3/uL (0.0-0.7) Basophils # (Auto) 0.1 x10^3/uL (0.0-0.2) 0.0 x10^3/uL (0.0-0.2) Sodium Level 143 mmol/L (136-145) 150 mmol/L (136-145) Potassium Level 3.2 mmol/L (3.5-5.1) 3.9 mmol/L (3.5-5.1) Chloride Level 105 mmol/L (98-107) 111 mmol/L (98-107) Carbon Dioxide Level 30 mmol/L (21-32) 28 mmol/L (21-32) Anion Gap 8 (6-14) 11 (6-14) Blood Urea Nitrogen 5 mg/dL (7-20) 7 mg/dL (7-20) Creatinine 0.8 mg/dL (0.6-1.0) 1.3 mg/dL (0.6-1.0) Estimated GFR (Cockcroft-Gault) 88.5 50.6 BUN/Creatinine Ratio 6 (6-20) Glucose Level 98 mg/dL (70-99) 120 mg/dL (70-99) Calcium Level 9.5 mg/dL (8.5-10.1) 8.9 mg/dL (8.5-10.1) Magnesium Level 1.8 mg/dL (1.8-2.4) Total Bilirubin 0.4 mg/dL (0.2-1.0) Aspartate Amino Transf (AST/SGOT) 23 U/L (15-37) Alanine Aminotransferase (ALT/SGPT) 20 U/L (14-59) Alkaline Phosphatase 105 U/L (46-116) Troponin I Quantitative < 0.017 ng/mL (0.000-0.055) LQ-Nlo-V-Type Natriuretic Peptide 74 pg/mL (0-124) Total Protein 7.9 g/dL (6.4-8.2) Albumin 2.8 g/dL (3.4-5.0) Albumin/Globulin Ratio 0.5 (1.0-1.7) Lipase 101 U/L (73-393) Lactic Acid Level 1.0 mmol/L (0.4-2.0) Comment Review of Relevant I have reviewed the following items jay (where applicable) has been applied. Labs Laboratory Tests Test 09/14/18 16:09 09/14/18 16:50 09/15/18 08:50 White Blood Count 7.6 x10^3/uL (4.0-11.0) 9.0 x10^3/uL (4.0-11.0) Red Blood Count 3.67 x10^6/uL (3.50-5.40) 3.37 x10^6/uL (3.50-5.40) Hemoglobin 11.7 g/dL (12.0-15.5) 10.6 g/dL (12.0-15.5) Hematocrit 34.5 % (36.0-47.0) 32.0 % (36.0-47.0) Mean Corpuscular Volume 94 fL (79-100) 95 fL (79-100) Mean Corpuscular Hemoglobin 32 pg (25-35) 32 pg (25-35) Mean Corpuscular Hemoglobin Concent 34 g/dL (31-37) 33 g/dL (31-37) Red Cell Distribution Width 15.2 % (11.5-14.5) 14.9 % (11.5-14.5) Platelet Count 537 x10^3/uL (140-400) 474 x10^3/uL (140-400) Neutrophils (%) (Auto) 64 % (31-73) 80 % (31-73) Lymphocytes (%) (Auto) 28 % (24-48) 12 % (24-48) Monocytes (%) (Auto) 6 % (0-9) 6 % (0-9) Eosinophils (%) (Auto) 1 % (0-3) 1 % (0-3) Basophils (%) (Auto) 1 % (0-3) 1 % (0-3) Neutrophils # (Auto) 4.8 x10^3uL (1.8-7.7) 7.2 x10^3uL (1.8-7.7) Lymphocytes # (Auto) 2.1 x10^3/uL (1.0-4.8) 1.1 x10^3/uL (1.0-4.8) Monocytes # (Auto) 0.4 x10^3/uL (0.0-1.1) 0.6 x10^3/uL (0.0-1.1) Eosinophils # (Auto) 0.1 x10^3/uL (0.0-0.7) 0.1 x10^3/uL (0.0-0.7) Basophils # (Auto) 0.1 x10^3/uL (0.0-0.2) 0.0 x10^3/uL (0.0-0.2) Sodium Level 143 mmol/L (136-145) 150 mmol/L (136-145) Potassium Level 3.2 mmol/L (3.5-5.1) 3.9 mmol/L (3.5-5.1) Chloride Level 105 mmol/L (98-107) 111 mmol/L (98-107) Carbon Dioxide Level 30 mmol/L (21-32) 28 mmol/L (21-32) Anion Gap 8 (6-14) 11 (6-14) Blood Urea Nitrogen 5 mg/dL (7-20) 7 mg/dL (7-20) Creatinine 0.8 mg/dL (0.6-1.0) 1.3 mg/dL (0.6-1.0) Estimated GFR (Cockcroft-Gault) 88.5 50.6 BUN/Creatinine Ratio 6 (6-20) Glucose Level 98 mg/dL (70-99) 120 mg/dL (70-99) Calcium Level 9.5 mg/dL (8.5-10.1) 8.9 mg/dL (8.5-10.1) Magnesium Level 1.8 mg/dL (1.8-2.4) Total Bilirubin 0.4 mg/dL (0.2-1.0) Aspartate Amino Transf (AST/SGOT) 23 U/L (15-37) Alanine Aminotransferase (ALT/SGPT) 20 U/L (14-59) Alkaline Phosphatase 105 U/L (46-116) Troponin I Quantitative < 0.017 ng/mL (0.000-0.055) VO-Tdd-Z-Type Natriuretic Peptide 74 pg/mL (0-124) Total Protein 7.9 g/dL (6.4-8.2) Albumin 2.8 g/dL (3.4-5.0) Albumin/Globulin Ratio 0.5 (1.0-1.7) Lipase 101 U/L (73-393) Lactic Acid Level 1.0 mmol/L (0.4-2.0) Laboratory Tests Test 09/14/18 16:09 09/14/18 16:50 09/15/18 08:50 White Blood Count 7.6 x10^3/uL (4.0-11.0) 9.0 x10^3/uL (4.0-11.0) Red Blood Count 3.67 x10^6/uL (3.50-5.40) 3.37 x10^6/uL (3.50-5.40) Hemoglobin 11.7 g/dL (12.0-15.5) 10.6 g/dL (12.0-15.5) Hematocrit 34.5 % (36.0-47.0) 32.0 % (36.0-47.0) Mean Corpuscular Volume 94 fL (79-100) 95 fL (79-100) Mean Corpuscular Hemoglobin 32 pg (25-35) 32 pg (25-35) Mean Corpuscular Hemoglobin Concent 34 g/dL (31-37) 33 g/dL (31-37) Red Cell Distribution Width 15.2 % (11.5-14.5) 14.9 % (11.5-14.5) Platelet Count 537 x10^3/uL (140-400) 474 x10^3/uL (140-400) Neutrophils (%) (Auto) 64 % (31-73) 80 % (31-73) Lymphocytes (%) (Auto) 28 % (24-48) 12 % (24-48) Monocytes (%) (Auto) 6 % (0-9) 6 % (0-9) Eosinophils (%) (Auto) 1 % (0-3) 1 % (0-3) Basophils (%) (Auto) 1 % (0-3) 1 % (0-3) Neutrophils # (Auto) 4.8 x10^3uL (1.8-7.7) 7.2 x10^3uL (1.8-7.7) Lymphocytes # (Auto) 2.1 x10^3/uL (1.0-4.8) 1.1 x10^3/uL (1.0-4.8) Monocytes # (Auto) 0.4 x10^3/uL (0.0-1.1) 0.6 x10^3/uL (0.0-1.1) Eosinophils # (Auto) 0.1 x10^3/uL (0.0-0.7) 0.1 x10^3/uL (0.0-0.7) Basophils # (Auto) 0.1 x10^3/uL (0.0-0.2) 0.0 x10^3/uL (0.0-0.2) Sodium Level 143 mmol/L (136-145) 150 mmol/L (136-145) Potassium Level 3.2 mmol/L (3.5-5.1) 3.9 mmol/L (3.5-5.1) Chloride Level 105 mmol/L (98-107) 111 mmol/L (98-107) Carbon Dioxide Level 30 mmol/L (21-32) 28 mmol/L (21-32) Anion Gap 8 (6-14) 11 (6-14) Blood Urea Nitrogen 5 mg/dL (7-20) 7 mg/dL (7-20) Creatinine 0.8 mg/dL (0.6-1.0) 1.3 mg/dL (0.6-1.0) Estimated GFR (Cockcroft-Gault) 88.5 50.6 BUN/Creatinine Ratio 6 (6-20) Glucose Level 98 mg/dL (70-99) 120 mg/dL (70-99) Calcium Level 9.5 mg/dL (8.5-10.1) 8.9 mg/dL (8.5-10.1) Magnesium Level 1.8 mg/dL (1.8-2.4) Total Bilirubin 0.4 mg/dL (0.2-1.0) Aspartate Amino Transf (AST/SGOT) 23 U/L (15-37) Alanine Aminotransferase (ALT/SGPT) 20 U/L (14-59) Alkaline Phosphatase 105 U/L (46-116) Troponin I Quantitative < 0.017 ng/mL (0.000-0.055) AD-Aga-S-Type Natriuretic Peptide 74 pg/mL (0-124) Total Protein 7.9 g/dL (6.4-8.2) Albumin 2.8 g/dL (3.4-5.0) Albumin/Globulin Ratio 0.5 (1.0-1.7) Lipase 101 U/L (73-393) Lactic Acid Level 1.0 mmol/L (0.4-2.0) Medications Current Medications Labetalol HCl (Normodyne Iv Push) 10 mg 1X ONCE IVP Last administered on 09/14at 18:15; Start 09/14/18 at 16:15; Stop 09/14/18 at 16:16; Status DC Piperacillin Sod/ Tazobactam Sod 3.375 gm/Sodium Chloride 50 ml @ 100 mls/hr Q8HRS IV ; Start 09/14/18 at 22:00; Stop 09/14/18 at 22:00; Status DC Vancomycin HCl (Vanco Per Pharmacy) 1 each PRN DAILY PRN MC SEE COMMENTS; Start 09/14/18 at 17:15; Stop 09/14/18 at 18:40; Status DC Potassium Chloride (Klor-Con) 40 meq 1X ONCE PO Last administered on at 18:44; Start 09/14/18 at 17:15; Stop 09/14/18 at 17:16; Status DC Clonidine HCl (Catapres) 0.1 mg PRN Q6HRS PRN PO ELEVATED BP, SEE COMMENTS Last administered on 09/15/18at 08:32; Start 09/14/18 at 17:15 Ondansetron HCl (Zofran) 4 mg PRN Q8HRS PRN IV NAUSEA/VOMITING; Start at 17:15; Stop 09/14/18 at 20:33; Status DC Acetaminophen (Tylenol) 650 mg PRN Q4HRS PRN PO FEVER Last administered on at 21:40; Start 09/14/18 at 17:15; Stop 09/15/18 at 09:43; Status DC Sodium Chloride 1,000 ml @ 75 mls/hr 1X ONCE IV Last administered on at 18:21; Start 09/14/18 at 17:15; Stop 09/15/18 at 06:34; Status DC Vancomycin HCl 1.75 gm/Sodium Chloride 500 ml @ 250 mls/hr 1X ONCE IV Last administered on 09/14/18at 18:23; Start 09/14/18 at 17:15; Stop 09/14/18 at 19 :14; Status DC Piperacillin Sod/ Tazobactam Sod 3.375 gm/Sodium Chloride 50 ml @ 100 mls/hr 1X ONCE IV Last administered on 09/14/18at 18:26; Start 09/14/18 at 17:15; Stop 09/14/18 at 17:44; Status DC Vancomycin HCl (Vanco Per Pharmacy) 1 each PRN DAILY PRN MC SEE COMMENTS Last administered on 09/14/18at 19:29; Start 09/14/18 at 18:45 Piperacillin Sod/ Tazobactam Sod 3.375 gm/Sodium Chloride 50 ml @ 100 mls/hr Q8HRS IV Last administered on 09/15/18at 05:12; Start 09/14/18 at 22:00 Vancomycin HCl 1 gm/Sodium Chloride 250 ml @ 250 mls/hr Q12H IV Last administered on 09/15/18at 05:14; Start 09/15/18 at 06:00 Vancomycin HCl (Vancomycin Trough Level) 1 each 1X ONCE MC ; Start 09/16/18 at 05:30; Stop 09/16/18 at 05:31 Ondansetron HCl (Zofran) 4 mg PRN Q6HRS PRN IV NAUSEA/VOMITING; Start at 20:30; Stop 09/15/18 at 09:43; Status DC Senna/Docusate Sodium (Senna Plus) 1 tab BID PO Last administered on at 08:12; Start 09/14/18 at 21:00 Lactulose (Lactulose) 20 gm PRN Q12HR PRN PO CONSTIPATION; Start 09/14/18 at 20:30 Heparin Sodium (Porcine) (Heparin Sodium) 5,000 unit Q8HRS SQ Last administered on 09/15/18at 05:15; Start 09/14/18 at 22:00 Albuterol/ Ipratropium (Duoneb) 3 ml RTQID NEB Last administered on 09/15/18at 11:30; Start 09/14/18 at 21:00 Influenza Virus Vaccine (Afluria Trivalent [id number] Syringe) 0.5 ml ONCE ONCE VAX IM Last administered on 09/15/18at 08:14; Start 09/15/18 at 09:00; Stop 09/15/18 at 09:01; Status DC Labetalol HCl (Normodyne Iv Push) 20 mg PRN Q4HRS PRN IVP GIVE FOR SBP > 160; Start 09/14/18 at 20:30; Stop 09/15/18 at 09:44; Status DC Hydralazine HCl (Apresoline) 10 mg PRN TID PRN PO for SBP >150mmHG Last administered on 09/15/18at 08:32; Start 09/14/18 at 20:30 Clonazepam (KlonoPIN) 0.5 mg BID PO Last administered on 09/15/18at 08:12; Start 09/14/18 at 21:00 Ketoconazole (Nizoral 2% Shampoo) 1 yani Th@2100 TP ; Start 09/19/18 at 21:00 Lisinopril (Prinivil) 20 mg HS PO Last administered on 09/14/18at 21:29; Start 09/14/18 at 21:00; Stop 09/15/18 at 09:40; Status DC Magnesium Hydroxide (Milk Of Magnesia) 2,400 mg PRN DAILY PRN PO CONSTIPATION; Start 09/14/18 at 20:45 Risperidone (RisperDAL CONSTA) 50 mg Q2WKS IM ; Start 09/28/18 at 09:00; Status UNV Benztropine Mesylate (Cogentin) 2 mg BID PO Last administered on 09/15/18at 08: 12; Start 09/14/18 at 21:00 Multivitamins (Thera M Plus) 1 tab DAILY PO Last administered on 09/15/18at 08: 12; Start 09/15/18 at 09:00 Olanzapine (ZyPREXA) 5 mg BID PO Last administered on 09/15/18at 08:12; Start 09/14/18 at 21:00 Vitamin E 800 unit BID PO Last administered on 09/15/18at 08:12; Start at 21:00 Amlodipine Besylate (Norvasc) 10 mg DAILY PO Last administered on 09/15/18at 11 :10; Start 09/15/18 at 10:00 Dextrose 1,000 ml @ 75 mls/hr [id number] IV Last administered on 09/15/18at 10:07 ; Start 09/15/18 at 09:45 Acetaminophen (Tylenol) 650 mg PRN Q6HRS PRN PO FEVER; Start 09/15/18 at 09:45 Ondansetron HCl (Zofran) 4 mg PRN Q6HRS PRN IV NAUSEA/VOMITING; Start at 09:45 Morphine Sulfate (Morphine Sulfate) 2 mg PRN Q2HR PRN IV MODERATE TO SEVERE PAIN; Start 09/15/18 at 09:45 Tramadol HCl (Ultram) 50 mg PRN Q6HRS PRN PO MILD TO MODERATE PAIN; Start at 09:45 Docusate Sodium (Colace) 100 mg PRN DAILY PRN PO CONSTIPATION; Start 09/15/18 at 09:45 Labetalol HCl (Normodyne Iv Push) 20 mg PRN Q2HR PRN IVP HYPERTENSION, SEE COMMENTS; Start 09/15/18 at 09:45 Active Scripts Active Reported Vitamin E (Vitamin E Acetate) 400 Unit Capsule 800 Unit PO BID Risperdal Consta (Risperidone Microspheres) 37.5 Mg/2 Ml Disp.syrin 50 Mg IM Q2WKS Olanzapine 5 Mg Tablet 1 Tab PO BID Multivitamins (Multivitamin) 1 Each Tablet 1 Tab PO DAILY Milk Of Magnesia (Magnesium Hydroxide) 400 Mg/5 Ml Oral.susp 30 Ml PO PRN DAILY PRN Lisinopril 20 Mg Tablet 1 Tab PO HS Benztropine Mesylate 2 Mg Tablet 1 Tab PO BID Ketoconazole 120 Ml Shampoo 1 Yani TP QTH Clonazepam 0.5 Mg Tablet 1 Tab PO BID Vitals/I & O Vital Sign - Last 24 Hours 09/14/18 09/14/18 09/14/18 09/14/18 15:39 18:15 19:17 21:29 Temp 98.9 98.9 Pulse 92 86 86 Resp 20 B/P (MAP) 221/109 (146) 195/100 170/75 Pulse Ox 94 O2 Delivery Room Air Room Air 09/14/18 09/14/18 09/14/18 09/15/18 21:35 22:00 23:00 03:00 Temp 97.7 97.5 97.7 97.7 97.5 97.7 Pulse 72 73 72 Resp 22 18 18 B/P (MAP) 171/86 (114) 174/89 (117) 141/82 (101) Pulse Ox 98 99 100 98 O2 Delivery Room Air Room Air Room Air Room Air 09/15/18 09/15/18 09/15/18 09/15/18 07:00 07:32 07:33 08:32 Temp 97.5 97.5 Pulse 75 73 Resp 18 B/P (MAP) 179/99 (125) 179/99 Pulse Ox 100 99 O2 Delivery Room Air Room Air Room Air 09/15/18 09/15/18 09/15/18 08:32 11:10 11:30 Pulse 73 75 B/P (MAP) 179/99 154/88 O2 Delivery Room Air Intake and Output 09/14/18 09/14/18 09/15/18 15:00 23:00 07:00 Intake Total 1020 ml Balance 1020 ml FELICIA MOMIN MD Sep 15, 2018 11:49
[2018-09-15 15:00] VITALS: BP 136/75
[2018-09-15] MEDS: VANCOMYCIN PER PHARMACY MC PRN (16:27)
[2018-09-15 17:43] LABS: CALCIUM 8.6 mg/dL (8.5-10.1); CREATININE 1.3 mg/dL (0.6-1.0); GFR 50.6; POTASSIUM 3.6 mmol/L (3.5-5.1)
[2018-09-15 19:00] VITALS: BP 149/81
[2018-09-15] MEDS: LACTOBACILLUS RHAMNOSUS GG 1 CAPSULE. PO SCH (20:42)
[2018-09-15 23:00] VITALS: BP 146/81
[2018-09-16 03:00] VITALS: BP 150/78
[2018-09-16] MEDS: PIPERACILLIN/TAZOBACTAM 3.375 GM in IV NORMAL SALINE 50ML 50 ML IV SCH ×3 (05:37→21:16)
[2018-09-16] MEDS: HEPARIN for SUB-Q USE 5,000 UNIT/ML VIAL. SQ SCH ×3 (05:38→21:20)
[2018-09-16 05:55] LABS: BASO # 0.1 x10^3/uL (0.0-0.2); BASO % 1 % (0-3); EOS # 0.2 x10^3/uL (0.0-0.7); EOS % 3 % (0-3); HEMATOCRIT 29.9 % (36.0-47.0); HEMOGLOBIN 10.1 g/dL (12.0-15.5); LYMPH # 1.7 x10^3/uL (1.0-4.8); LYMPH % 22 % (24-48); MEAN CORPUSCULAR HEMOGLOBIN 32 pg (25-35); MEAN CORPUSCULAR HGB CONC 34 g/dL (31-37); MEAN CORPUSCULAR VOLUME 95 fL (79-100); MONO # 0.6 x10^3/uL (0.0-1.1); MONO % 8 % (0-9); NEUT % 66 % (31-73); PLATELET COUNT 393 x10^3/uL (140-400); RED BLOOD COUNT 3.14 x10^6/uL (3.50-5.40); WHITE BLOOD COUNT 7.6 x10^3/uL (4.0-11.0)
[2018-09-16 05:59] LABS: CALCIUM 8.4 mg/dL (8.5-10.1); CREATININE 1.3 mg/dL (0.6-1.0); GFR 50.6; POTASSIUM 3.7 mmol/L (3.5-5.1)
[2018-09-16] MEDS: VANCOMYCIN 1 GM in IV NORMAL SALINE 250ML 250 ML IV SCH ×2 (06:00→15:40)
[2018-09-16 06:06] LABS: VANC TR 23.3 mcg/mL (10.0-20.0)
[2018-09-16] MEDS: IPRATRPIUM/ALBUTEROL 0.5/2.5MG 3 ML NEBU. NEB SCH ×4 (06:56→19:48)
[2018-09-16 07:00] VITALS: BP 181/96
[2018-09-16] MEDS: VANCOMYCIN PER PHARMACY MC PRN (08:14)
[2018-09-16] MEDS: SENNOSIDES/DOCUSATE 8.6/50MG TABLET. PO SCH ×2 (08:33→20:33)
[2018-09-16] MEDS: clonazePAM 0.5 MG TABLET PO SCH ×2 (08:33→20:33)
[2018-09-16] MEDS: LACTOBACILLUS RHAMNOSUS GG 1 CAPSULE. PO SCH ×2 (08:33→20:33)
[2018-09-16] MEDS: VITAMIN E 200 UNIT CAPSULE. PO SCH ×2 (08:33→20:33)
[2018-09-16] MEDS: MULTIVITAMIN with MINERAL TABLET. PO SCH (08:33)
[2018-09-16] MEDS: amLODIPine BESYLATE 10 MG TABLET PO SCH (08:34)
[2018-09-16] MEDS: OLANZapine 5 MG TABLET PO SCH ×2 (08:34→20:32)
[2018-09-16] MEDS: BENZTROPINE MESYLATE 1 MG TABLET. PO SCH ×2 (10:55→20:33)
[2018-09-16 11:00] VITALS: BP 159/96
--- NOTE | 2018-09-16 13:19 | PDOC ---
PROGRESS NOTES Chief Complaint Chief Complaint AMS, 2/2 HTN urgency plus schizophrenia LLL pneumonia , HAP Hypoxia Schizophrenia - Acute encephalopathy - likely 2/2 HTN vs schizophrenia HTN Urgency Hypokalemia History of Present Illness History of Present Illness Pt seen and examined VSS Vitals Vitals Vital Signs Date Time Temp Pulse Resp B/P (MAP) Pulse Ox O2 Delivery O2 Flow Rate FiO2 09/16/18 11:41 97 Room Air 09/16/18 11:00 98.0 81 18 159/96 (117) 98.0 Physical Exam General: No acute distress, Other (resting) Heart: Regular rate, Normal S1, Normal S2 Lungs: Clear Abdomen: Normal bowel sounds, Soft, No tenderness, No hepatosplenomegaly, No masses Extremities: No clubbing, No cyanosis, No edema, Normal pulses, No tenderness/ swelling Skin: No rashes, No breakdown, No significant lesion Labs LABS Laboratory Tests Test 09/15/18 17:05 09/16/18 05:30 Sodium Level 146 mmol/L (136-145) 147 mmol/L (136-145) Potassium Level 3.6 mmol/L (3.5-5.1) 3.7 mmol/L (3.5-5.1) Chloride Level 109 mmol/L (98-107) 110 mmol/L (98-107) Carbon Dioxide Level 29 mmol/L (21-32) 27 mmol/L (21-32) Anion Gap 8 (6-14) 10 (6-14) Blood Urea Nitrogen 9 mg/dL (7-20) 8 mg/dL (7-20) Creatinine 1.3 mg/dL (0.6-1.0) 1.3 mg/dL (0.6-1.0) Estimated GFR (Cockcroft-Gault) 50.6 50.6 Glucose Level 104 mg/dL (70-99) 92 mg/dL (70-99) Calcium Level 8.6 mg/dL (8.5-10.1) 8.4 mg/dL (8.5-10.1) White Blood Count 7.6 x10^3/uL (4.0-11.0) Red Blood Count 3.14 x10^6/uL (3.50-5.40) Hemoglobin 10.1 g/dL (12.0-15.5) Hematocrit 29.9 % (36.0-47.0) Mean Corpuscular Volume 95 fL (79-100) Mean Corpuscular Hemoglobin 32 pg (25-35) Mean Corpuscular Hemoglobin Concent 34 g/dL (31-37) Red Cell Distribution Width 15.0 % (11.5-14.5) Platelet Count 393 x10^3/uL (140-400) Neutrophils (%) (Auto) 66 % (31-73) Lymphocytes (%) (Auto) 22 % (24-48) Monocytes (%) (Auto) 8 % (0-9) Eosinophils (%) (Auto) 3 % (0-3) Basophils (%) (Auto) 1 % (0-3) Neutrophils # (Auto) 5.0 x10^3uL (1.8-7.7) Lymphocytes # (Auto) 1.7 x10^3/uL (1.0-4.8) Monocytes # (Auto) 0.6 x10^3/uL (0.0-1.1) Eosinophils # (Auto) 0.2 x10^3/uL (0.0-0.7) Basophils # (Auto) 0.1 x10^3/uL (0.0-0.2) Vancomycin Level Trough 23.3 mcg/mL (10.0-20.0) Vancomycin Last Dose Date 09/15/18 Vancomycin Last Dose Time 1800 Review of Systems Review of Systems no new co today co hunger Assessment and Plan Assessmemt and Plan AMS, 2/2 HTN urgency plus schizophrenia LLL pneumonia , HAP Hypoxia Schizophrenia - Acute encephalopathy - likely 2/2 HTN vs schizophrenia HTN Urgency Hypokalemia plan; Cont vanco , zosyn for now, NC as needed d5 for now, repeat BMp later, hold lisinopril for now cont home psych meds labetolol , hydralazine prn for htn Comment Review of Relevant I have reviewed the following items jay (where applicable) has been applied. Labs Laboratory Tests Test 09/14/18 16:09 09/14/18 16:50 09/15/18 04:15 09/15/18 08:50 White Blood Count 7.6 x10^3/uL (4.0-11.0) 9.0 x10^3/uL (4.0-11.0) Red Blood Count 3.67 x10^6/uL (3.50-5.40) 3.37 x10^6/uL (3.50-5.40) Hemoglobin 11.7 g/dL (12.0-15.5) 10.6 g/dL (12.0-15.5) Hematocrit 34.5 % (36.0-47.0) 32.0 % (36.0-47.0) Mean Corpuscular Volume 94 fL (79-100) 95 fL (79-100) Mean Corpuscular Hemoglobin 32 pg (25-35) 32 pg (25-35) Mean Corpuscular Hemoglobin Concent 34 g/dL (31-37) 33 g/dL (31-37) Red Cell Distribution Width 15.2 % (11.5-14.5) 14.9 % (11.5-14.5) Platelet Count 537 x10^3/uL (140-400) 474 x10^3/uL (140-400) Neutrophils (%) (Auto) 64 % (31-73) 80 % (31-73) Lymphocytes (%) (Auto) 28 % (24-48) 12 % (24-48) Monocytes (%) (Auto) 6 % (0-9) 6 % (0-9) Eosinophils (%) (Auto) 1 % (0-3) 1 % (0-3) Basophils (%) (Auto) 1 % (0-3) 1 % (0-3) Neutrophils # (Auto) 4.8 x10^3uL (1.8-7.7) 7.2 x10^3uL (1.8-7.7) Lymphocytes # (Auto) 2.1 x10^3/uL (1.0-4.8) 1.1 x10^3/uL (1.0-4.8) Monocytes # (Auto) 0.4 x10^3/uL (0.0-1.1) 0.6 x10^3/uL (0.0-1.1) Eosinophils # (Auto) 0.1 x10^3/uL (0.0-0.7) 0.1 x10^3/uL (0.0-0.7) Basophils # (Auto) 0.1 x10^3/uL (0.0-0.2) 0.0 x10^3/uL (0.0-0.2) Sodium Level 143 mmol/L (136-145) 150 mmol/L (136-145) Potassium Level 3.2 mmol/L (3.5-5.1) 3.9 mmol/L (3.5-5.1) Chloride Level 105 mmol/L (98-107) 111 mmol/L (98-107) Carbon Dioxide Level 30 mmol/L (21-32) 28 mmol/L (21-32) Anion Gap 8 (6-14) 11 (6-14) Blood Urea Nitrogen 5 mg/dL (7-20) 7 mg/dL (7-20) Creatinine 0.8 mg/dL (0.6-1.0) 1.3 mg/dL (0.6-1.0) Estimated GFR (Cockcroft-Gault) 88.5 50.6 BUN/Creatinine Ratio 6 (6-20) Glucose Level 98 mg/dL (70-99) 120 mg/dL (70-99) Calcium Level 9.5 mg/dL (8.5-10.1) 8.9 mg/dL (8.5-10.1) Magnesium Level 1.8 mg/dL (1.8-2.4) Total Bilirubin 0.4 mg/dL (0.2-1.0) Aspartate Amino Transf (AST/SGOT) 23 U/L (15-37) Alanine Aminotransferase (ALT/SGPT) 20 U/L (14-59) Alkaline Phosphatase 105 U/L (46-116) Troponin I Quantitative < 0.017 ng/mL (0.000-0.055) JX-[id number]-Type Natriuretic Peptide 74 pg/mL (0-124) Total Protein 7.9 g/dL (6.4-8.2) Albumin 2.8 g/dL (3.4-5.0) Albumin/Globulin Ratio 0.5 (1.0-1.7) Lipase 101 U/L (73-393) Lactic Acid Level 1.0 mmol/L (0.4-2.0) Nasal Screen MRSA (PCR) Negative (Negative) Test 09/15/18 17:05 09/16/18 05:30 Sodium Level 146 mmol/L (136-145) 147 mmol/L (136-145) Potassium Level 3.6 mmol/L (3.5-5.1) 3.7 mmol/L (3.5-5.1) Chloride Level 109 mmol/L (98-107) 110 mmol/L (98-107) Carbon Dioxide Level 29 mmol/L (21-32) 27 mmol/L (21-32) Anion Gap 8 (6-14) 10 (6-14) Blood Urea Nitrogen 9 mg/dL (7-20) 8 mg/dL (7-20) Creatinine 1.3 mg/dL (0.6-1.0) 1.3 mg/dL (0.6-1.0) Estimated GFR (Cockcroft-Gault) 50.6 50.6 Glucose Level 104 mg/dL (70-99) 92 mg/dL (70-99) Calcium Level 8.6 mg/dL (8.5-10.1) 8.4 mg/dL (8.5-10.1) White Blood Count 7.6 x10^3/uL (4.0-11.0) Red Blood Count 3.14 x10^6/uL (3.50-5.40) Hemoglobin 10.1 g/dL (12.0-15.5) Hematocrit 29.9 % (36.0-47.0) Mean Corpuscular Volume 95 fL (79-100) Mean Corpuscular Hemoglobin 32 pg (25-35) Mean Corpuscular Hemoglobin Concent 34 g/dL (31-37) Red Cell Distribution Width 15.0 % (11.5-14.5) Platelet Count 393 x10^3/uL (140-400) Neutrophils (%) (Auto) 66 % (31-73) Lymphocytes (%) (Auto) 22 % (24-48) Monocytes (%) (Auto) 8 % (0-9) Eosinophils (%) (Auto) 3 % (0-3) Basophils (%) (Auto) 1 % (0-3) Neutrophils # (Auto) 5.0 x10^3uL (1.8-7.7) Lymphocytes # (Auto) 1.7 x10^3/uL (1.0-4.8) Monocytes # (Auto) 0.6 x10^3/uL (0.0-1.1) Eosinophils # (Auto) 0.2 x10^3/uL (0.0-0.7) Basophils # (Auto) 0.1 x10^3/uL (0.0-0.2) Vancomycin Level Trough 23.3 mcg/mL (10.0-20.0) Vancomycin Last Dose Date 09/15/18 Vancomycin Last Dose Time 1800 Laboratory Tests Test 09/15/18 17:05 09/16/18 05:30 Sodium Level 146 mmol/L (136-145) 147 mmol/L (136-145) Potassium Level 3.6 mmol/L (3.5-5.1) 3.7 mmol/L (3.5-5.1) Chloride Level 109 mmol/L (98-107) 110 mmol/L (98-107) Carbon Dioxide Level 29 mmol/L (21-32) 27 mmol/L (21-32) Anion Gap 8 (6-14) 10 (6-14) Blood Urea Nitrogen 9 mg/dL (7-20) 8 mg/dL (7-20) Creatinine 1.3 mg/dL (0.6-1.0) 1.3 mg/dL (0.6-1.0) Estimated GFR (Cockcroft-Gault) 50.6 50.6 Glucose Level 104 mg/dL (70-99) 92 mg/dL (70-99) Calcium Level 8.6 mg/dL (8.5-10.1) 8.4 mg/dL (8.5-10.1) White Blood Count 7.6 x10^3/uL (4.0-11.0) Red Blood Count 3.14 x10^6/uL (3.50-5.40) Hemoglobin 10.1 g/dL (12.0-15.5) Hematocrit 29.9 % (36.0-47.0) Mean Corpuscular Volume 95 fL (79-100) Mean Corpuscular Hemoglobin 32 pg (25-35) Mean Corpuscular Hemoglobin Concent 34 g/dL (31-37) Red Cell Distribution Width 15.0 % (11.5-14.5) Platelet Count 393 x10^3/uL (140-400) Neutrophils (%) (Auto) 66 % (31-73) Lymphocytes (%) (Auto) 22 % (24-48) Monocytes (%) (Auto) 8 % (0-9) Eosinophils (%) (Auto) 3 % (0-3) Basophils (%) (Auto) 1 % (0-3) Neutrophils # (Auto) 5.0 x10^3uL (1.8-7.7) Lymphocytes # (Auto) 1.7 x10^3/uL (1.0-4.8) Monocytes # (Auto) 0.6 x10^3/uL (0.0-1.1) Eosinophils # (Auto) 0.2 x10^3/uL (0.0-0.7) Basophils # (Auto) 0.1 x10^3/uL (0.0-0.2) Vancomycin Level Trough 23.3 mcg/mL (10.0-20.0) Vancomycin Last Dose Date 09/15/18 Vancomycin Last Dose Time 1800 Microbiology 09/15/18 Blood Culture - Preliminary, Resulted NO GROWTH AFTER 1 DAY Medications Current Medications Labetalol HCl (Normodyne Iv Push) 10 mg 1X ONCE IVP Last administered on 09/14at 18:15; Start 09/14/18 at 16:15; Stop 09/14/18 at 16:16; Status DC Piperacillin Sod/ Tazobactam Sod 3.375 gm/Sodium Chloride 50 ml @ 100 mls/hr Q8HRS IV ; Start 09/14/18 at 22:00; Stop 09/14/18 at 22:00; Status DC Vancomycin HCl (Vanco Per Pharmacy) 1 each PRN DAILY PRN MC SEE COMMENTS; Start 09/14/18 at 17:15; Stop 09/14/18 at 18:40; Status DC Potassium Chloride (Klor-Con) 40 meq 1X ONCE PO Last administered on at 18:44; Start 09/14/18 at 17:15; Stop 09/14/18 at 17:16; Status DC Clonidine HCl (Catapres) 0.1 mg PRN Q6HRS PRN PO ELEVATED BP, SEE COMMENTS Last administered on 09/15/18at 08:32; Start 09/14/18 at 17:15 Ondansetron HCl (Zofran) 4 mg PRN Q8HRS PRN IV NAUSEA/VOMITING; Start at 17:15; Stop 09/14/18 at 20:33; Status DC Acetaminophen (Tylenol) 650 mg PRN Q4HRS PRN PO FEVER Last administered on at 21:40; Start 09/14/18 at 17:15; Stop 09/15/18 at 09:43; Status DC Sodium Chloride 1,000 ml @ 75 mls/hr 1X ONCE IV Last administered on at 18:21; Start 09/14/18 at 17:15; Stop 09/15/18 at 06:34; Status DC Vancomycin HCl 1.75 gm/Sodium Chloride 500 ml @ 250 mls/hr 1X ONCE IV Last administered on 09/14/18at 18:23; Start 09/14/18 at 17:15; Stop 09/14/18 at 19 :14; Status DC Piperacillin Sod/ Tazobactam Sod 3.375 gm/Sodium Chloride 50 ml @ 100 mls/hr 1X ONCE IV Last administered on 09/14/18at 18:26; Start 09/14/18 at 17:15; Stop 09/14/18 at 17:44; Status DC Vancomycin HCl (Vanco Per Pharmacy) 1 each PRN DAILY PRN MC SEE COMMENTS Last administered on 09/16/18at 08:14; Start 09/14/18 at 18:45 Piperacillin Sod/ Tazobactam Sod 3.375 gm/Sodium Chloride 50 ml @ 100 mls/hr Q8HRS IV Last administered on 09/16/18at 05:37; Start 09/14/18 at 22:00 Vancomycin HCl 1 gm/Sodium Chloride 250 ml @ 250 mls/hr Q12H IV Last administered on 09/15/18at 17:36; Start 09/15/18 at 06:00; Stop 09/16/18 at 06 :17; Status DC Vancomycin HCl (Vancomycin Trough Level) 1 each 1X ONCE MC ; Start 09/16/18 at 05:30; Stop 09/16/18 at 05:31; Status DC Ondansetron HCl (Zofran) 4 mg PRN Q6HRS PRN IV NAUSEA/VOMITING; Start at 20:30; Stop 09/15/18 at 09:43; Status DC Senna/Docusate Sodium (Senna Plus) 1 tab BID PO Last administered on at 08:33; Start 09/14/18 at 21:00 Lactulose (Lactulose) 20 gm PRN Q12HR PRN PO CONSTIPATION, 1st CHOICE; Start 09/14/18 at 20:30 Heparin Sodium (Porcine) (Heparin Sodium) 5,000 unit Q8HRS SQ Last administered on 09/16/18at 05:38; Start 09/14/18 at 22:00 Albuterol/ Ipratropium (Duoneb) 3 ml RTQID NEB Last administered on 09/16/18at 11:41; Start 09/14/18 at 21:00 Influenza Virus Vaccine (Afluria Trivalent [id number] Syringe) 0.5 ml ONCE ONCE VAX IM Last administered on 09/15/18at 08:14; Start 09/15/18 at 09:00; Stop 09/15/18 at 09:01; Status DC Labetalol HCl (Normodyne Iv Push) 20 mg PRN Q4HRS PRN IVP GIVE FOR SBP > 160; Start 09/14/18 at 20:30; Stop 09/15/18 at 09:44; Status DC Hydralazine HCl (Apresoline) 10 mg PRN TID PRN PO for SBP >150mmHG Last administered on 09/15/18at 08:32; Start 09/14/18 at 20:30 Clonazepam (KlonoPIN) 0.5 mg BID PO Last administered on 09/16/18at 08:33; Start 09/14/18 at 21:00 Ketoconazole (Nizoral 2% Shampoo) 1 yani Th@2100 TP ; Start 09/19/18 at 21:00 Lisinopril (Prinivil) 20 mg HS PO Last administered on 09/14/18at 21:29; Start 09/14/18 at 21:00; Stop 09/15/18 at 09:40; Status DC Magnesium Hydroxide (Milk Of Magnesia) 2,400 mg PRN DAILY PRN PO CONSTIPATION, 2nd CHOICE; Start 09/14/18 at 20:45 Risperidone (RisperDAL CONSTA) 50 mg Q2WKS IM ; Start 09/28/18 at 09:00; Status UNV Benztropine Mesylate (Cogentin) 2 mg BID PO Last administered on 09/16/18at 10: 55; Start 09/14/18 at 21:00 Multivitamins (Thera M Plus) 1 tab DAILY PO Last administered on 09/16/18at 08: 33; Start 09/15/18 at 09:00 Olanzapine (ZyPREXA) 5 mg BID PO Last administered on 09/16/18at 08:34; Start 09/14/18 at 21:00 Vitamin E 800 unit BID PO Last administered on 09/16/18at 08:33; Start at 21:00 Amlodipine Besylate (Norvasc) 10 mg DAILY PO Last administered on 09/16/18at 08 :34; Start 09/15/18 at 10:00 Dextrose 1,000 ml @ 75 mls/hr [id number] IV Last administered on 09/15/18at 21:33 ; Start 09/15/18 at 09:45 Acetaminophen (Tylenol) 650 mg PRN Q6HRS PRN PO FEVER; Start 09/15/18 at 09:45 Ondansetron HCl (Zofran) 4 mg PRN Q6HRS PRN IV NAUSEA/VOMITING; Start at 09:45 Morphine Sulfate (Morphine Sulfate) 2 mg PRN Q2HR PRN IV MODERATE TO SEVERE PAIN; Start 09/15/18 at 09:45 Tramadol HCl (Ultram) 50 mg PRN Q6HRS PRN PO MILD TO MODERATE PAIN; Start at 09:45 Docusate Sodium (Colace) 100 mg PRN DAILY PRN PO HARD STOOLS; Start 09/15/18 at 09:45 Labetalol HCl (Normodyne Iv Push) 20 mg PRN Q2HR PRN IVP HYPERTENSION, SEE COMMENTS; Start 09/15/18 at 09:45 Albuterol Sulfate (Ventolin Neb Soln) 2.5 mg PRN Q4HRS PRN NEB SHORTNESS OF BREATH; Start 09/15/18 at 11:45 Lactobacillus Rhamnosus (Culturelle) 1 cap BID PO Last administered on at 08:33; Start 09/15/18 at 21:00 Vancomycin HCl 1 gm/Sodium Chloride 250 ml @ 250 mls/hr Q24H IV ; Start at 15:00 Vancomycin HCl (Vancomycin Trough Level) 1 each 1X ONCE MC ; Start 09/18/18 at 14:30; Stop 09/18/18 at 14:31 Active Scripts Active Reported Vitamin E (Vitamin E Acetate) 400 Unit Capsule 800 Unit PO BID Risperdal Consta (Risperidone Microspheres) 37.5 Mg/2 Ml Disp.syrin 50 Mg IM Q2WKS Olanzapine 5 Mg Tablet 1 Tab PO BID Multivitamins (Multivitamin) 1 Each Tablet 1 Tab PO DAILY Milk Of Magnesia (Magnesium Hydroxide) 400 Mg/5 Ml Oral.susp 30 Ml PO PRN DAILY PRN Lisinopril 20 Mg Tablet 1 Tab PO HS Benztropine Mesylate 2 Mg Tablet 1 Tab PO BID Ketoconazole 120 Ml Shampoo 1 Yani TP QTH Clonazepam 0.5 Mg Tablet 1 Tab PO BID Vitals/I & O Vital Sign - Last 24 Hours 09/15/18 09/15/18 09/15/18 09/15/18 15:00 15:53 19:00 19:28 Temp 99.0 99.0 Pulse 85 85 Resp 18 18 B/P (MAP) 136/75 (95) 149/81 (103) Pulse Ox 100 97 97 O2 Delivery Room Air Room Air Room Air 09/15/18 09/15/18 09/16/18 09/16/18 20:09 23:00 03:00 06:56 Temp 99.1 99.0 99.1 99.0 Pulse 78 72 Resp 18 18 B/P (MAP) 146/81 (102) 150/78 (102) Pulse Ox 98 97 96 O2 Delivery Room Air Room Air Room Air Room Air 09/16/18 09/16/18 09/16/18 09/16/18 07:00 08:00 08:34 11:00 Temp 97.8 98.0 97.8 98.0 Pulse 92 93 81 Resp 18 18 B/P (MAP) 181/96 (124) 181/96 159/96 (117) Pulse Ox 99 99 O2 Delivery Room Air Room Air Room Air 09/16/18 11:41 Pulse Ox 97 O2 Delivery Room Air Intake and Output 09/15/18 09/15/18 09/16/18 15:00 23:00 07:00 Intake Total 2600 ml 1610 ml Balance 2600 ml 1610 ml SUSAN BISWAS III DO Sep 16, 2018 13:19
[2018-09-16 15:00] VITALS: BP 157/78
[2018-09-16 19:00] VITALS: BP 133/76
[2018-09-16] MEDS: IV DEXTROSE 5% 1,000 ML IV SCH (20:32)
[2018-09-16 23:00] VITALS: BP 142/86
[2018-09-17] MEDS: IV DEXTROSE 5% 1,000 ML IV SCH ×2 (01:45→16:20)
[2018-09-17 03:00] VITALS: BP 168/93
[2018-09-17] MEDS: PIPERACILLIN/TAZOBACTAM 3.375 GM in IV NORMAL SALINE 50ML 50 ML IV SCH ×3 (05:20→21:56)
[2018-09-17] MEDS: HEPARIN for SUB-Q USE 5,000 UNIT/ML VIAL. SQ SCH ×3 (05:23→22:01)
[2018-09-17] MEDS: IPRATRPIUM/ALBUTEROL 0.5/2.5MG 3 ML NEBU. NEB SCH ×4 (07:11→20:29)
[2018-09-17 07:49] VITALS: BP 150/72
[2018-09-17] MEDS: MULTIVITAMIN with MINERAL TABLET. PO SCH (08:53)
[2018-09-17] MEDS: OLANZapine 5 MG TABLET PO SCH ×2 (08:53→21:57)
[2018-09-17] MEDS: VITAMIN E 200 UNIT CAPSULE. PO SCH ×2 (08:53→21:57)
[2018-09-17] MEDS: SENNOSIDES/DOCUSATE 8.6/50MG TABLET. PO SCH ×2 (08:53→21:57)
[2018-09-17] MEDS: amLODIPine BESYLATE 10 MG TABLET PO SCH (08:53)
[2018-09-17] MEDS: clonazePAM 0.5 MG TABLET PO SCH ×2 (08:53→21:57)
[2018-09-17] MEDS: LACTOBACILLUS RHAMNOSUS GG 1 CAPSULE. PO SCH ×2 (08:53→21:57)
[2018-09-17] MEDS: BENZTROPINE MESYLATE 1 MG TABLET. PO SCH ×2 (08:58→21:57)
[2018-09-17 11:10] VITALS: BP 150/79
--- NOTE | 2018-09-17 13:56 | PDOC ---
PROGRESS NOTES Chief Complaint Chief Complaint AMS, 2/2 HTN urgency plus schizophrenia LLL pneumonia , HAP Hypoxia Schizophrenia - Acute encephalopathy - likely 2/2 HTN vs schizophrenia HTN Urgency Hypokalemia hypernatremia, give 1/2 ns History of Present Illness History of Present Illness Pt seen and examined VSS Vitals Vitals Vital Signs Date Time Temp Pulse Resp B/P (MAP) Pulse Ox O2 Delivery O2 Flow Rate FiO2 09/17/18 11:12 98 Room Air 09/17/18 11:10 98.6 86 18 150/79 (102) 98.6 Physical Exam General: Cooperative, No acute distress, Other (resting) Heart: Regular rate, Normal S1, Normal S2 Lungs: Clear Abdomen: Normal bowel sounds, Soft, No tenderness, No hepatosplenomegaly, No masses Extremities: No clubbing, No cyanosis, No edema, Normal pulses, No tenderness/ swelling Skin: No rashes, No breakdown, No significant lesion Comment Review of Relevant I have reviewed the following items jay (where applicable) has been applied. Labs Laboratory Tests Test 09/15/18 17:05 09/16/18 05:30 Sodium Level 146 mmol/L (136-145) 147 mmol/L (136-145) Potassium Level 3.6 mmol/L (3.5-5.1) 3.7 mmol/L (3.5-5.1) Chloride Level 109 mmol/L (98-107) 110 mmol/L (98-107) Carbon Dioxide Level 29 mmol/L (21-32) 27 mmol/L (21-32) Anion Gap 8 (6-14) 10 (6-14) Blood Urea Nitrogen 9 mg/dL (7-20) 8 mg/dL (7-20) Creatinine 1.3 mg/dL (0.6-1.0) 1.3 mg/dL (0.6-1.0) Estimated GFR (Cockcroft-Gault) 50.6 50.6 Glucose Level 104 mg/dL (70-99) 92 mg/dL (70-99) Calcium Level 8.6 mg/dL (8.5-10.1) 8.4 mg/dL (8.5-10.1) White Blood Count 7.6 x10^3/uL (4.0-11.0) Red Blood Count 3.14 x10^6/uL (3.50-5.40) Hemoglobin 10.1 g/dL (12.0-15.5) Hematocrit 29.9 % (36.0-47.0) Mean Corpuscular Volume 95 fL (79-100) Mean Corpuscular Hemoglobin 32 pg (25-35) Mean Corpuscular Hemoglobin Concent 34 g/dL (31-37) Red Cell Distribution Width 15.0 % (11.5-14.5) Platelet Count 393 x10^3/uL (140-400) Neutrophils (%) (Auto) 66 % (31-73) Lymphocytes (%) (Auto) 22 % (24-48) Monocytes (%) (Auto) 8 % (0-9) Eosinophils (%) (Auto) 3 % (0-3) Basophils (%) (Auto) 1 % (0-3) Neutrophils # (Auto) 5.0 x10^3uL (1.8-7.7) Lymphocytes # (Auto) 1.7 x10^3/uL (1.0-4.8) Monocytes # (Auto) 0.6 x10^3/uL (0.0-1.1) Eosinophils # (Auto) 0.2 x10^3/uL (0.0-0.7) Basophils # (Auto) 0.1 x10^3/uL (0.0-0.2) Vancomycin Level Trough 23.3 mcg/mL (10.0-20.0) Vancomycin Last Dose Date 09/15/18 Vancomycin Last Dose Time 1800 Microbiology 09/15/18 Blood Culture - Preliminary, Resulted NO GROWTH AFTER 2 DAYS Medications Current Medications Labetalol HCl (Normodyne Iv Push) 10 mg 1X ONCE IVP Last administered on 09/14at 18:15; Start 09/14/18 at 16:15; Stop 09/14/18 at 16:16; Status DC Piperacillin Sod/ Tazobactam Sod 3.375 gm/Sodium Chloride 50 ml @ 100 mls/hr Q8HRS IV ; Start 09/14/18 at 22:00; Stop 09/14/18 at 22:00; Status DC Vancomycin HCl (Vanco Per Pharmacy) 1 each PRN DAILY PRN MC SEE COMMENTS; Start 09/14/18 at 17:15; Stop 09/14/18 at 18:40; Status DC Potassium Chloride (Klor-Con) 40 meq 1X ONCE PO Last administered on at 18:44; Start 09/14/18 at 17:15; Stop 09/14/18 at 17:16; Status DC Clonidine HCl (Catapres) 0.1 mg PRN Q6HRS PRN PO ELEVATED BP, SEE COMMENTS Last administered on 09/15/18at 08:32; Start 09/14/18 at 17:15 Ondansetron HCl (Zofran) 4 mg PRN Q8HRS PRN IV NAUSEA/VOMITING; Start at 17:15; Stop 09/14/18 at 20:33; Status DC Acetaminophen (Tylenol) 650 mg PRN Q4HRS PRN PO FEVER Last administered on at 21:40; Start 09/14/18 at 17:15; Stop 09/15/18 at 09:43; Status DC Sodium Chloride 1,000 ml @ 75 mls/hr 1X ONCE IV Last administered on at 18:21; Start 09/14/18 at 17:15; Stop 09/15/18 at 06:34; Status DC Vancomycin HCl 1.75 gm/Sodium Chloride 500 ml @ 250 mls/hr 1X ONCE IV Last administered on 09/14/18at 18:23; Start 09/14/18 at 17:15; Stop 09/14/18 at 19 :14; Status DC Piperacillin Sod/ Tazobactam Sod 3.375 gm/Sodium Chloride 50 ml @ 100 mls/hr 1X ONCE IV Last administered on 09/14/18at 18:26; Start 09/14/18 at 17:15; Stop 09/14/18 at 17:44; Status DC Vancomycin HCl (Vanco Per Pharmacy) 1 each PRN DAILY PRN MC SEE COMMENTS Last administered on 09/16/18at 08:14; Start 09/14/18 at 18:45 Piperacillin Sod/ Tazobactam Sod 3.375 gm/Sodium Chloride 50 ml @ 100 mls/hr Q8HRS IV Last administered on 09/17/18at 05:20; Start 09/14/18 at 22:00 Vancomycin HCl 1 gm/Sodium Chloride 250 ml @ 250 mls/hr Q12H IV Last administered on 09/15/18at 17:36; Start 09/15/18 at 06:00; Stop 09/16/18 at 06 :17; Status DC Vancomycin HCl (Vancomycin Trough Level) 1 each 1X ONCE MC ; Start 09/16/18 at 05:30; Stop 09/16/18 at 05:31; Status DC Ondansetron HCl (Zofran) 4 mg PRN Q6HRS PRN IV NAUSEA/VOMITING; Start at 20:30; Stop 09/15/18 at 09:43; Status DC Senna/Docusate Sodium (Senna Plus) 1 tab BID PO Last administered on at 08:53; Start 09/14/18 at 21:00 Lactulose (Lactulose) 20 gm PRN Q12HR PRN PO CONSTIPATION, 1st CHOICE; Start 09/14/18 at 20:30 Heparin Sodium (Porcine) (Heparin Sodium) 5,000 unit Q8HRS SQ Last administered on 09/17/18at 05:23; Start 09/14/18 at 22:00 Albuterol/ Ipratropium (Duoneb) 3 ml RTQID NEB Last administered on 09/17/18at 11:12; Start 09/14/18 at 21:00 Influenza Virus Vaccine (Afluria Trivalent [id number] Syringe) 0.5 ml ONCE ONCE VAX IM Last administered on 09/15/18at 08:14; Start 09/15/18 at 09:00; Stop 09/15/18 at 09:01; Status DC Labetalol HCl (Normodyne Iv Push) 20 mg PRN Q4HRS PRN IVP GIVE FOR SBP > 160; Start 09/14/18 at 20:30; Stop 09/15/18 at 09:44; Status DC Hydralazine HCl (Apresoline) 10 mg PRN TID PRN PO for SBP >150mmHG Last administered on 09/15/18at 08:32; Start 09/14/18 at 20:30 Clonazepam (KlonoPIN) 0.5 mg BID PO Last administered on 09/17/18at 08:53; Start 09/14/18 at 21:00 Ketoconazole (Nizoral 2% Shampoo) 1 yani Th@2100 TP ; Start 09/19/18 at 21:00 Lisinopril (Prinivil) 20 mg HS PO Last administered on 09/14/18at 21:29; Start 09/14/18 at 21:00; Stop 09/15/18 at 09:40; Status DC Magnesium Hydroxide (Milk Of Magnesia) 2,400 mg PRN DAILY PRN PO CONSTIPATION, 2nd CHOICE; Start 09/14/18 at 20:45 Risperidone (RisperDAL CONSTA) 50 mg Q2WKS IM ; Start 09/28/18 at 09:00; Status UNV Benztropine Mesylate (Cogentin) 2 mg BID PO Last administered on 09/17/18at 08: 58; Start 09/14/18 at 21:00 Multivitamins (Thera M Plus) 1 tab DAILY PO Last administered on 09/17/18 08: 53; Start 09/15/18 at 09:00 Olanzapine (ZyPREXA) 5 mg BID PO Last administered on 09/17/18 08:53; Start 09/14/18 at 21:00 Vitamin E 800 unit BID PO Last administered on 09/17/18at 08:53; Start at 21:00 Amlodipine Besylate (Norvasc) 10 mg DAILY PO Last administered on 09/17/18at 08 :53; Start 09/15/18 at 10:00 Dextrose 1,000 ml @ 75 mls/hr [id number] IV Last administered on 09/16/18at 20:32 ; Start 09/15/18 at 09:45 Acetaminophen (Tylenol) 650 mg PRN Q6HRS PRN PO FEVER; Start 09/15/18 at 09:45 Ondansetron HCl (Zofran) 4 mg PRN Q6HRS PRN IV NAUSEA/VOMITING; Start at 09:45 Morphine Sulfate (Morphine Sulfate) 2 mg PRN Q2HR PRN IV MODERATE TO SEVERE PAIN; Start 09/15/18 at 09:45 Tramadol HCl (Ultram) 50 mg PRN Q6HRS PRN PO MILD TO MODERATE PAIN; Start at 09:45 Docusate Sodium (Colace) 100 mg PRN DAILY PRN PO HARD STOOLS; Start 09/15/18 at 09:45 Labetalol HCl (Normodyne Iv Push) 20 mg PRN Q2HR PRN IVP HYPERTENSION, SEE COMMENTS; Start 09/15/18 at 09:45 Albuterol Sulfate (Ventolin Neb Soln) 2.5 mg PRN Q4HRS PRN NEB SHORTNESS OF BREATH; Start 09/15/18 at 11:45 Lactobacillus Rhamnosus (Culturelle) 1 cap BID PO Last administered on at 08:53; Start 09/15/18 at 21:00 Vancomycin HCl 1 gm/Sodium Chloride 250 ml @ 250 mls/hr Q24H IV Last administered on 09/16/18at 15:40; Start 09/16/18 at 15:00 Vancomycin HCl (Vancomycin Trough Level) 1 each 1X ONCE MC ; Start 09/18/18 at 14:30; Stop 09/18/18 at 14:31 Active Scripts Active Reported Vitamin E (Vitamin E Acetate) 400 Unit Capsule 800 Unit PO BID Risperdal Consta (Risperidone Microspheres) 37.5 Mg/2 Ml Disp.syrin 50 Mg IM Q2WKS Olanzapine 5 Mg Tablet 1 Tab PO BID Multivitamins (Multivitamin) 1 Each Tablet 1 Tab PO DAILY Milk Of Magnesia (Magnesium Hydroxide) 400 Mg/5 Ml Oral.susp 30 Ml PO PRN DAILY PRN Lisinopril 20 Mg Tablet 1 Tab PO HS Benztropine Mesylate 2 Mg Tablet 1 Tab PO BID Ketoconazole 120 Ml Shampoo 1 Yani TP QTH Clonazepam 0.5 Mg Tablet 1 Tab PO BID Vitals/I & O Vital Sign - Last 24 Hours 09/16/18 09/16/18 09/16/18 09/16/18 15:00 16:07 19:00 19:30 Temp 98.0 98.8 98.0 98.8 Pulse 88 91 Resp 17 18 B/P (MAP) 157/78 (104) 133/76 (95) Pulse Ox 99 95 O2 Delivery Room Air Room Air Room Air Room Air 09/16/18 09/16/18 09/17/18 09/17/18 19:48 23:00 03:00 07:12 Temp 98.6 98.2 98.6 98.2 Pulse 78 77 Resp 18 18 B/P (MAP) 142/86 (104) 168/93 (118) Pulse Ox 98 97 98 97 O2 Delivery Room Air Room Air Room Air Room Air 09/17/18 09/17/18 09/17/18 09/17/18 07:49 08:00 08:53 11:10 Temp 97.5 98.6 97.5 98.6 Pulse 82 82 86 Resp 18 18 B/P (MAP) 150/72 (98) 150/72 150/79 (102) Pulse Ox 97 99 O2 Delivery Room Air Room Air Room Air 09/17/18 11:12 Pulse Ox 98 O2 Delivery Room Air Intake and Output 09/16/18 09/16/18 09/17/18 14:59 22:59 06:59 Intake Total 2150 ml 50 ml Balance 2150 ml 50 ml DELORES MOCK MD Sep 17, 2018 13:56
[2018-09-17] MEDS: VANCOMYCIN PER PHARMACY MC PRN (14:52)
[2018-09-17 15:53] VITALS: BP 151/89
[2018-09-17] MEDS: VANCOMYCIN 1 GM in IV NORMAL SALINE 250ML 250 ML IV SCH (16:14)
[2018-09-17 19:00] VITALS: BP 152/67
[2018-09-17 23:29] VITALS: BP 155/89
[2018-09-18 03:00] VITALS: BP 163/85
[2018-09-18] MEDS: PIPERACILLIN/TAZOBACTAM 3.375 GM in IV NORMAL SALINE 50ML 50 ML IV SCH (06:19)
[2018-09-18] MEDS: IV DEXTROSE 5% 1,000 ML IV SCH (06:19)
[2018-09-18 06:23] LABS: CALCIUM 9.3 mg/dL (8.5-10.1); CREATININE 1.2 mg/dL (0.6-1.0); GFR 55.4; POTASSIUM 3.9 mmol/L (3.5-5.1)
[2018-09-18] MEDS: HEPARIN for SUB-Q USE 5,000 UNIT/ML VIAL. SQ SCH (06:25)
[2018-09-18 07:00] VITALS: BP 156/90
[2018-09-18] MEDS: IPRATRPIUM/ALBUTEROL 0.5/2.5MG 3 ML NEBU. NEB SCH ×2 (07:09→11:16)
[2018-09-18 08:43] LABS: BASO % 1 % (0-3); EOS # 0.2 x10^3/uL (0.0-0.7); EOS % 3 % (0-3); HEMATOCRIT 29.9 % (36.0-47.0); HEMOGLOBIN 10.2 g/dL (12.0-15.5); LYMPH # 1.5 x10^3/uL (1.0-4.8); LYMPH % 20 % (24-48); MEAN CORPUSCULAR HEMOGLOBIN 32 pg (25-35); MEAN CORPUSCULAR HGB CONC 34 g/dL (31-37); MEAN CORPUSCULAR VOLUME 95 fL (79-100); MONO # 0.6 x10^3/uL (0.0-1.1); MONO % 8 % (0-9); NEUT # 5.1 x10^3uL (1.8-7.7); NEUT % 69 % (31-73); PLATELET COUNT 328 x10^3/uL (140-400); RED BLOOD COUNT 3.14 x10^6/uL (3.50-5.40); WHITE BLOOD COUNT 7.3 x10^3/uL (4.0-11.0)
[2018-09-18] MEDS: VITAMIN E 200 UNIT CAPSULE. PO SCH (08:59)
[2018-09-18] MEDS: clonazePAM 0.5 MG TABLET PO SCH (08:59)
[2018-09-18] MEDS: LACTOBACILLUS RHAMNOSUS GG 1 CAPSULE. PO SCH (09:00)
[2018-09-18] MEDS: MULTIVITAMIN with MINERAL TABLET. PO SCH (09:00)
[2018-09-18] MEDS: OLANZapine 5 MG TABLET PO SCH (09:00)
[2018-09-18] MEDS: SENNOSIDES/DOCUSATE 8.6/50MG TABLET. PO SCH (09:00)
[2018-09-18] MEDS: BENZTROPINE MESYLATE 1 MG TABLET. PO SCH (09:00)
[2018-09-18] MEDS: amLODIPine BESYLATE 10 MG TABLET PO SCH (09:00)
--- NOTE | 2018-09-18 10:26 | PDOC ---
PROGRESS NOTES Chief Complaint Chief Complaint AMS, 2/2 HTN urgency plus schizophrenia LLL pneumonia , HAP Hypoxia Schizophrenia - Acute encephalopathy - likely 2/2 HTN vs schizophrenia HTN Urgency Hypokalemia hypernatremia, give 1/2 ns b12 level, free t4, ua neurology consulted History of Present Illness History of Present Illness Pt seen and examined VSS Vitals Vitals Vital Signs Date Time Temp Pulse Resp B/P (MAP) Pulse Ox O2 Delivery O2 Flow Rate FiO2 09/18/18 09:00 83 156/90 09/18/18 08:00 Room Air 09/18/18 07:09 98 09/18/18 07:00 98.8 18 98.8 Physical Exam General: Cooperative, No acute distress, Other (resting) Heart: Regular rate, Normal S1, Normal S2 Lungs: Clear Abdomen: Normal bowel sounds, Soft, No tenderness, No hepatosplenomegaly, No masses Extremities: No clubbing, No cyanosis, No edema, Normal pulses, No tenderness/ swelling Skin: No rashes, No breakdown, No significant lesion Labs LABS Laboratory Tests Test 09/18/18 05:27 09/18/18 08:15 Sodium Level 141 mmol/L (136-145) Potassium Level 3.9 mmol/L (3.5-5.1) Chloride Level 105 mmol/L (98-107) Carbon Dioxide Level 25 mmol/L (21-32) Anion Gap 11 (6-14) Blood Urea Nitrogen 8 mg/dL (7-20) Creatinine 1.2 mg/dL (0.6-1.0) Estimated GFR (Cockcroft-Gault) 55.4 Glucose Level 93 mg/dL (70-99) Calcium Level 9.3 mg/dL (8.5-10.1) White Blood Count 7.3 x10^3/uL (4.0-11.0) Red Blood Count 3.14 x10^6/uL (3.50-5.40) Hemoglobin 10.2 g/dL (12.0-15.5) Hematocrit 29.9 % (36.0-47.0) Mean Corpuscular Volume 95 fL (79-100) Mean Corpuscular Hemoglobin 32 pg (25-35) Mean Corpuscular Hemoglobin Concent 34 g/dL (31-37) Red Cell Distribution Width 15.0 % (11.5-14.5) Platelet Count 328 x10^3/uL (140-400) Neutrophils (%) (Auto) 69 % (31-73) Lymphocytes (%) (Auto) 20 % (24-48) Monocytes (%) (Auto) 8 % (0-9) Eosinophils (%) (Auto) 3 % (0-3) Basophils (%) (Auto) 1 % (0-3) Neutrophils # (Auto) 5.1 x10^3uL (1.8-7.7) Lymphocytes # (Auto) 1.5 x10^3/uL (1.0-4.8) Monocytes # (Auto) 0.6 x10^3/uL (0.0-1.1) Eosinophils # (Auto) 0.2 x10^3/uL (0.0-0.7) Basophils # (Auto) 0.0 x10^3/uL (0.0-0.2) Comment Review of Relevant I have reviewed the following items jay (where applicable) has been applied. Labs Laboratory Tests Test 09/18/18 05:27 09/18/18 08:15 Sodium Level 141 mmol/L (136-145) Potassium Level 3.9 mmol/L (3.5-5.1) Chloride Level 105 mmol/L (98-107) Carbon Dioxide Level 25 mmol/L (21-32) Anion Gap 11 (6-14) Blood Urea Nitrogen 8 mg/dL (7-20) Creatinine 1.2 mg/dL (0.6-1.0) Estimated GFR (Cockcroft-Gault) 55.4 Glucose Level 93 mg/dL (70-99) Calcium Level 9.3 mg/dL (8.5-10.1) White Blood Count 7.3 x10^3/uL (4.0-11.0) Red Blood Count 3.14 x10^6/uL (3.50-5.40) Hemoglobin 10.2 g/dL (12.0-15.5) Hematocrit 29.9 % (36.0-47.0) Mean Corpuscular Volume 95 fL (79-100) Mean Corpuscular Hemoglobin 32 pg (25-35) Mean Corpuscular Hemoglobin Concent 34 g/dL (31-37) Red Cell Distribution Width 15.0 % (11.5-14.5) Platelet Count 328 x10^3/uL (140-400) Neutrophils (%) (Auto) 69 % (31-73) Lymphocytes (%) (Auto) 20 % (24-48) Monocytes (%) (Auto) 8 % (0-9) Eosinophils (%) (Auto) 3 % (0-3) Basophils (%) (Auto) 1 % (0-3) Neutrophils # (Auto) 5.1 x10^3uL (1.8-7.7) Lymphocytes # (Auto) 1.5 x10^3/uL (1.0-4.8) Monocytes # (Auto) 0.6 x10^3/uL (0.0-1.1) Eosinophils # (Auto) 0.2 x10^3/uL (0.0-0.7) Basophils # (Auto) 0.0 x10^3/uL (0.0-0.2) Laboratory Tests Test 09/18/18 05:27 09/18/18 08:15 Sodium Level 141 mmol/L (136-145) Potassium Level 3.9 mmol/L (3.5-5.1) Chloride Level 105 mmol/L (98-107) Carbon Dioxide Level 25 mmol/L (21-32) Anion Gap 11 (6-14) Blood Urea Nitrogen 8 mg/dL (7-20) Creatinine 1.2 mg/dL (0.6-1.0) Estimated GFR (Cockcroft-Gault) 55.4 Glucose Level 93 mg/dL (70-99) Calcium Level 9.3 mg/dL (8.5-10.1) White Blood Count 7.3 x10^3/uL (4.0-11.0) Red Blood Count 3.14 x10^6/uL (3.50-5.40) Hemoglobin 10.2 g/dL (12.0-15.5) Hematocrit 29.9 % (36.0-47.0) Mean Corpuscular Volume 95 fL (79-100) Mean Corpuscular Hemoglobin 32 pg (25-35) Mean Corpuscular Hemoglobin Concent 34 g/dL (31-37) Red Cell Distribution Width 15.0 % (11.5-14.5) Platelet Count 328 x10^3/uL (140-400) Neutrophils (%) (Auto) 69 % (31-73) Lymphocytes (%) (Auto) 20 % (24-48) Monocytes (%) (Auto) 8 % (0-9) Eosinophils (%) (Auto) 3 % (0-3) Basophils (%) (Auto) 1 % (0-3) Neutrophils # (Auto) 5.1 x10^3uL (1.8-7.7) Lymphocytes # (Auto) 1.5 x10^3/uL (1.0-4.8) Monocytes # (Auto) 0.6 x10^3/uL (0.0-1.1) Eosinophils # (Auto) 0.2 x10^3/uL (0.0-0.7) Basophils # (Auto) 0.0 x10^3/uL (0.0-0.2) Microbiology 09/15/18 Blood Culture - Preliminary, Resulted NO GROWTH AFTER 3 DAYS Medications Current Medications Labetalol HCl (Normodyne Iv Push) 10 mg 1X ONCE IVP Last administered on 09/14at 18:15; Start 09/14/18 at 16:15; Stop 09/14/18 at 16:16; Status DC Piperacillin Sod/ Tazobactam Sod 3.375 gm/Sodium Chloride 50 ml @ 100 mls/hr Q8HRS IV ; Start 09/14/18 at 22:00; Stop 09/14/18 at 22:00; Status DC Vancomycin HCl (Vanco Per Pharmacy) 1 each PRN DAILY PRN MC SEE COMMENTS; Start 09/14/18 at 17:15; Stop 09/14/18 at 18:40; Status DC Potassium Chloride (Klor-Con) 40 meq 1X ONCE PO Last administered on at 18:44; Start 09/14/18 at 17:15; Stop 09/14/18 at 17:16; Status DC Clonidine HCl (Catapres) 0.1 mg PRN Q6HRS PRN PO ELEVATED BP, SEE COMMENTS Last administered on 09/15/18at 08:32; Start 09/14/18 at 17:15 Ondansetron HCl (Zofran) 4 mg PRN Q8HRS PRN IV NAUSEA/VOMITING; Start at 17:15; Stop 09/14/18 at 20:33; Status DC Acetaminophen (Tylenol) 650 mg PRN Q4HRS PRN PO FEVER Last administered on at 21:40; Start 09/14/18 at 17:15; Stop 09/15/18 at 09:43; Status DC Sodium Chloride 1,000 ml @ 75 mls/hr 1X ONCE IV Last administered on at 18:21; Start 09/14/18 at 17:15; Stop 09/15/18 at 06:34; Status DC Vancomycin HCl 1.75 gm/Sodium Chloride 500 ml @ 250 mls/hr 1X ONCE IV Last administered on 09/14/18at 18:23; Start 09/14/18 at 17:15; Stop 09/14/18 at 19 :14; Status DC Piperacillin Sod/ Tazobactam Sod 3.375 gm/Sodium Chloride 50 ml @ 100 mls/hr 1X ONCE IV Last administered on 09/14/18at 18:26; Start 09/14/18 at 17:15; Stop 09/14/18 at 17:44; Status DC Vancomycin HCl (Vanco Per Pharmacy) 1 each PRN DAILY PRN MC SEE COMMENTS Last administered on 09/17/18at 14:52; Start 09/14/18 at 18:45 Piperacillin Sod/ Tazobactam Sod 3.375 gm/Sodium Chloride 50 ml @ 100 mls/hr Q8HRS IV Last administered on 09/18/18at 06:19; Start 09/14/18 at 22:00 Vancomycin HCl 1 gm/Sodium Chloride 250 ml @ 250 mls/hr Q12H IV Last administered on 09/15/18at 17:36; Start 09/15/18 at 06:00; Stop 09/16/18 at 06 :17; Status DC Vancomycin HCl (Vancomycin Trough Level) 1 each 1X ONCE MC ; Start 09/16/18 at 05:30; Stop 09/16/18 at 05:31; Status DC Ondansetron HCl (Zofran) 4 mg PRN Q6HRS PRN IV NAUSEA/VOMITING; Start at 20:30; Stop 09/15/18 at 09:43; Status DC Senna/Docusate Sodium (Senna Plus) 1 tab BID PO Last administered on at 09:00; Start 09/14/18 at 21:00 Lactulose (Lactulose) 20 gm PRN Q12HR PRN PO CONSTIPATION, 1st CHOICE; Start 09/14/18 at 20:30 Heparin Sodium (Porcine) (Heparin Sodium) 5,000 unit Q8HRS SQ Last administered on 09/18/18at 06:25; Start 09/14/18 at 22:00 Albuterol/ Ipratropium (Duoneb) 3 ml RTQID NEB Last administered on 09/18/18at 07:09; Start 09/14/18 at 21:00 Influenza Virus Vaccine (Afluria Trivalent 9027-3804 Syringe) 0.5 ml ONCE ONCE VAX IM Last administered on 09/15/18at 08:14; Start 09/15/18 at 09:00; Stop 09/15/18 at 09:01; Status DC Labetalol HCl (Normodyne Iv Push) 20 mg PRN Q4HRS PRN IVP GIVE FOR SBP > 160; Start 09/14/18 at 20:30; Stop 09/15/18 at 09:44; Status DC Hydralazine HCl (Apresoline) 10 mg PRN TID PRN PO for SBP >150mmHG Last administered on 09/15/18at 08:32; Start 09/14/18 at 20:30 Clonazepam (KlonoPIN) 0.5 mg BID PO Last administered on 09/18/18at 08:59; Start 09/14/18 at 21:00 Ketoconazole (Nizoral 2% Shampoo) 1 ayni Th@2100 TP ; Start 09/19/18 at 21:00 Lisinopril (Prinivil) 20 mg HS PO Last administered on 09/14/18at 21:29; Start 09/14/18 at 21:00; Stop 09/15/18 at 09:40; Status DC Magnesium Hydroxide (Milk Of Magnesia) 2,400 mg PRN DAILY PRN PO CONSTIPATION, 2nd CHOICE; Start 09/14/18 at 20:45 Risperidone (RisperDAL CONSTA) 50 mg Q2WKS IM ; Start 09/28/18 at 09:00; Status UNV Benztropine Mesylate (Cogentin) 2 mg BID PO Last administered on 09/18/18at 09: 00; Start 09/14/18 at 21:00 Multivitamins (Thera M Plus) 1 tab DAILY PO Last administered on 09/18/18at 09: 00; Start 09/15/18 at 09:00 Olanzapine (ZyPREXA) 5 mg BID PO Last administered on 09/18/18at 09:00; Start 09/14/18 at 21:00 Vitamin E 800 unit BID PO Last administered on 09/18/18at 08:59; Start at 21:00 Amlodipine Besylate (Norvasc) 10 mg DAILY PO Last administered on 09/18/18at 09 :00; Start 09/15/18 at 10:00 Dextrose 1,000 ml @ 75 mls/hr [id number] IV Last administered on 09/18/18at 06:19 ; Start 09/15/18 at 09:45 Acetaminophen (Tylenol) 650 mg PRN Q6HRS PRN PO FEVER; Start 09/15/18 at 09:45 Ondansetron HCl (Zofran) 4 mg PRN Q6HRS PRN IV NAUSEA/VOMITING; Start at 09:45 Morphine Sulfate (Morphine Sulfate) 2 mg PRN Q2HR PRN IV MODERATE TO SEVERE PAIN; Start 09/15/18 at 09:45 Tramadol HCl (Ultram) 50 mg PRN Q6HRS PRN PO MILD TO MODERATE PAIN; Start at 09:45 Docusate Sodium (Colace) 100 mg PRN DAILY PRN PO HARD STOOLS; Start 09/15/18 at 09:45 Labetalol HCl (Normodyne Iv Push) 20 mg PRN Q2HR PRN IVP HYPERTENSION, SEE COMMENTS; Start 09/15/18 at 09:45 Albuterol Sulfate (Ventolin Neb Soln) 2.5 mg PRN Q4HRS PRN NEB SHORTNESS OF BREATH; Start 09/15/18 at 11:45 Lactobacillus Rhamnosus (Culturelle) 1 cap BID PO Last administered on at 09:00; Start 09/15/18 at 21:00 Vancomycin HCl 1 gm/Sodium Chloride 250 ml @ 250 mls/hr Q24H IV Last administered on 09/17/18at 16:14; Start 09/16/18 at 15:00 Vancomycin HCl (Vancomycin Trough Level) 1 each 1X ONCE MC ; Start 09/18/18 at 14:30; Stop 10/24/18 at 14:31 Active Scripts Active Reported Vitamin E (Vitamin E Acetate) 400 Unit Capsule 800 Unit PO BID Risperdal Consta (Risperidone Microspheres) 37.5 Mg/2 Ml Disp.syrin 50 Mg IM Q2WKS Olanzapine 5 Mg Tablet 1 Tab PO BID Multivitamins (Multivitamin) 1 Each Tablet 1 Tab PO DAILY Milk Of Magnesia (Magnesium Hydroxide) 400 Mg/5 Ml Oral.susp 30 Ml PO PRN DAILY PRN Lisinopril 20 Mg Tablet 1 Tab PO HS Benztropine Mesylate 2 Mg Tablet 1 Tab PO BID Ketoconazole 120 Ml Shampoo 1 Yani TP QTH Clonazepam 0.5 Mg Tablet 1 Tab PO BID Vitals/I & O Vital Sign - Last 24 Hours 09/17/18 09/17/18 09/17/18 09/17/18 11:10 11:12 15:06 15:53 Temp 98.6 98.8 98.6 98.8 Pulse 86 79 Resp 18 18 B/P (MAP) 150/79 (102) 151/89 (109) Pulse Ox 99 98 100 100 O2 Delivery Room Air Room Air Room Air Room Air 09/17/18 09/17/18 09/17/18 09/17/18 19:00 19:50 20:29 23:29 Temp 99.1 97.9 99.1 97.9 Pulse 87 83 Resp 18 20 B/P (MAP) 152/67 (95) 155/89 (111) Pulse Ox 99 100 96 O2 Delivery Room Air Room Air Room Air Room Air 09/18/18 09/18/18 09/18/18 09/18/18 03:00 07:00 07:09 08:00 Temp 97.9 98.8 97.9 98.8 Pulse 74 83 Resp 20 18 B/P (MAP) 163/85 (111) 156/90 (112) Pulse Ox 97 97 98 O2 Delivery Room Air Room Air Room Air Room Air 09/18/18 09:00 Pulse 83 B/P (MAP) 156/90 Intake and Output 09/17/18 09/17/18 09/18/18 15:00 23:00 07:00 Intake Total 120 ml 125 ml Balance 120 ml 125 ml DELORES MOCK MD Sep 18, 2018 10:26
[2018-09-18 11:00] VITALS: BP 161/86
--- NOTE | 2018-09-18 14:32 | PDOC3 ---
Discharge Summary Date of Admission: Sep 14, 2018 Date of Discharge: Sep 18, 2018 Follow-Up: 1-2 days Admitting Diagnosis comment: DISCHARGE DIAGNOSIS======== Chief Complaint AMS, 2/2 HTN urgency plus schizophrenia LLL pneumonia , HAP Hypoxia Schizophrenia - Acute encephalopathy - likely 2/2 HTN vs schizophrenia HTN Urgency Hypokalemia hypernatremia, give 1/2 ns b12 level, free t4, ua neurology consulted History of Present Illness History of Present Illness Pt seen and examined VSS Vitals Vitals Vital Signs Date Time Temp Pulse Resp B/P (MAP) Pulse Ox O2 Delivery O2 Flow Rate FiO2 09/18/18 09:00 83 156/90 09/18/18 08:00 Room Air 09/18/18 07:09 98 09/18/18 07:00 98.8 18 98.8 Physical Exam General: Cooperative, No acute distress, Other (resting) MORE ALERT Heart: Regular rate, Normal S1, Normal S2 Lungs: Clear Abdomen: Normal bowel sounds, Soft, No tenderness, No hepatosplenomegaly, No masses Extremities: No clubbing, No cyanosis, No edema, Normal pulses, No tenderness/ swelling Skin: No rashes, No breakdown, No significant lesion Brief Hospital Course Ms. Bautista is a 58 old [sex] who presented with [AMS ] CONDITION AT DISCHARGE: Improved Discharge Medications Current Medications Labetalol HCl (Normodyne Iv Push) 10 mg 1X ONCE IVP Last administered on 09/14at 18:15; Start 09/14/18 at 16:15; Stop 09/14/18 at 16:16; Status DC Piperacillin Sod/ Tazobactam Sod 3.375 gm/Sodium Chloride 50 ml @ 100 mls/hr Q8HRS IV ; Start 09/14/18 at 22:00; Stop 09/14/18 at 22:00; Status DC Vancomycin HCl (Vanco Per Pharmacy) 1 each PRN DAILY PRN MC SEE COMMENTS; Start 09/14/18 at 17:15; Stop 09/14/18 at 18:40; Status DC Potassium Chloride (Klor-Con) 40 meq 1X ONCE PO Last administered on at 18:44; Start 09/14/18 at 17:15; Stop 09/14/18 at 17:16; Status DC Clonidine HCl (Catapres) 0.1 mg PRN Q6HRS PRN PO ELEVATED BP, SEE COMMENTS Last administered on 09/15/18at 08:32; Start 09/14/18 at 17:15 Ondansetron HCl (Zofran) 4 mg PRN Q8HRS PRN IV NAUSEA/VOMITING; Start at 17:15; Stop 09/14/18 at 20:33; Status DC Acetaminophen (Tylenol) 650 mg PRN Q4HRS PRN PO FEVER Last administered on at 21:40; Start 09/14/18 at 17:15; Stop 09/15/18 at 09:43; Status DC Sodium Chloride 1,000 ml @ 75 mls/hr 1X ONCE IV Last administered on at 18:21; Start 09/14/18 at 17:15; Stop 09/15/18 at 06:34; Status DC Vancomycin HCl 1.75 gm/Sodium Chloride 500 ml @ 250 mls/hr 1X ONCE IV Last administered on 09/14/18at 18:23; Start 09/14/18 at 17:15; Stop 09/14/18 at 19 :14; Status DC Piperacillin Sod/ Tazobactam Sod 3.375 gm/Sodium Chloride 50 ml @ 100 mls/hr 1X ONCE IV Last administered on 09/14/18at 18:26; Start 09/14/18 at 17:15; Stop 09/14/18 at 17:44; Status DC Vancomycin HCl (Vanco Per Pharmacy) 1 each PRN DAILY PRN MC SEE COMMENTS Last administered on 09/17/18at 14:52; Start 09/14/18 at 18:45 Piperacillin Sod/ Tazobactam Sod 3.375 gm/Sodium Chloride 50 ml @ 100 mls/hr Q8HRS IV Last administered on 09/18/18at 06:19; Start 09/14/18 at 22:00 Vancomycin HCl 1 gm/Sodium Chloride 250 ml @ 250 mls/hr Q12H IV Last administered on 09/15/18at 17:36; Start 09/15/18 at 06:00; Stop 09/16/18 at 06 :17; Status DC Vancomycin HCl (Vancomycin Trough Level) 1 each 1X ONCE MC ; Start 09/16/18 at 05:30; Stop 09/16/18 at 05:31; Status DC Ondansetron HCl (Zofran) 4 mg PRN Q6HRS PRN IV NAUSEA/VOMITING; Start at 20:30; Stop 09/15/18 at 09:43; Status DC Senna/Docusate Sodium (Senna Plus) 1 tab BID PO Last administered on at 09:00; Start 09/14/18 at 21:00 Lactulose (Lactulose) 20 gm PRN Q12HR PRN PO CONSTIPATION, 1st CHOICE; Start 09/14/18 at 20:30 Heparin Sodium (Porcine) (Heparin Sodium) 5,000 unit Q8HRS SQ Last administered on 09/18/18at 06:25; Start 09/14/18 at 22:00 Albuterol/ Ipratropium (Duoneb) 3 ml RTQID NEB Last administered on 09/18/18at 11:16; Start 09/14/18 at 21:00 Influenza Virus Vaccine (Afluria Trivalent [id number] Syringe) 0.5 ml ONCE ONCE VAX IM Last administered on 09/15/18at 08:14; Start 09/15/18 at 09:00; Stop 09/15/18 at 09:01; Status DC Labetalol HCl (Normodyne Iv Push) 20 mg PRN Q4HRS PRN IVP GIVE FOR SBP > 160; Start 09/14/18 at 20:30; Stop 09/15/18 at 09:44; Status DC Hydralazine HCl (Apresoline) 10 mg PRN TID PRN PO for SBP >150mmHG Last administered on 09/15/18at 08:32; Start 09/14/18 at 20:30 Clonazepam (KlonoPIN) 0.5 mg BID PO Last administered on 09/18/18at 08:59; Start 09/14/18 at 21:00 Ketoconazole (Nizoral 2% Shampoo) 1 yani Th@2100 TP ; Start 09/19/18 at 21:00 Lisinopril (Prinivil) 20 mg HS PO Last administered on 09/14/18at 21:29; Start 09/14/18 at 21:00; Stop 09/15/18 at 09:40; Status DC Magnesium Hydroxide (Milk Of Magnesia) 2,400 mg PRN DAILY PRN PO CONSTIPATION, 2nd CHOICE; Start 09/14/18 at 20:45 Risperidone (RisperDAL CONSTA) 50 mg Q2WKS IM ; Start 09/28/18 at 09:00; Status UNV Benztropine Mesylate (Cogentin) 2 mg BID PO Last administered on 09/18/18at 09: 00; Start 09/14/18 at 21:00 Multivitamins (Thera M Plus) 1 tab DAILY PO Last administered on 09/18/18 09: 00; Start 09/15/18 at 09:00 Olanzapine (ZyPREXA) 5 mg BID PO Last administered on 09/18/18 09:00; Start 09/14/18 at 21:00 Vitamin E 800 unit BID PO Last administered on 09/18/18at 08:59; Start at 21:00 Amlodipine Besylate (Norvasc) 10 mg DAILY PO Last administered on 09/18/18at 09 :00; Start 09/15/18 at 10:00 Dextrose 1,000 ml @ 75 mls/hr [id number] IV Last administered on 09/18/18at 06:19 ; Start 09/15/18 at 09:45 Acetaminophen (Tylenol) 650 mg PRN Q6HRS PRN PO FEVER; Start 09/15/18 at 09:45 Ondansetron HCl (Zofran) 4 mg PRN Q6HRS PRN IV NAUSEA/VOMITING; Start at 09:45 Morphine Sulfate (Morphine Sulfate) 2 mg PRN Q2HR PRN IV MODERATE TO SEVERE PAIN; Start 09/15/18 at 09:45 Tramadol HCl (Ultram) 50 mg PRN Q6HRS PRN PO MILD TO MODERATE PAIN; Start at 09:45 Docusate Sodium (Colace) 100 mg PRN DAILY PRN PO HARD STOOLS; Start 09/15/18 at 09:45 Labetalol HCl (Normodyne Iv Push) 20 mg PRN Q2HR PRN IVP HYPERTENSION, SEE COMMENTS; Start 09/15/18 at 09:45 Albuterol Sulfate (Ventolin Neb Soln) 2.5 mg PRN Q4HRS PRN NEB SHORTNESS OF BREATH; Start 09/15/18 at 11:45 Lactobacillus Rhamnosus (Culturelle) 1 cap BID PO Last administered on at 09:00; Start 09/15/18 at 21:00 Vancomycin HCl 1 gm/Sodium Chloride 250 ml @ 250 mls/hr Q24H IV Last administered on 09/17/18at 16:14; Start 09/16/18 at 15:00 Vancomycin HCl (Vancomycin Trough Level) 1 each 1X ONCE MC ; Start 09/18/18 at 14:30; Stop 09/18/18 at 14:31 Active Scripts Active Reported Vitamin E (Vitamin E Acetate) 400 Unit Capsule 800 Unit PO BID Risperdal Consta (Risperidone Microspheres) 37.5 Mg/2 Ml Disp.syrin 50 Mg IM Q2WKS Olanzapine 5 Mg Tablet 1 Tab PO BID Multivitamins (Multivitamin) 1 Each Tablet 1 Tab PO DAILY Milk Of Magnesia (Magnesium Hydroxide) 400 Mg/5 Ml Oral.susp 30 Ml PO PRN DAILY PRN Lisinopril 20 Mg Tablet 1 Tab PO HS Benztropine Mesylate 2 Mg Tablet 1 Tab PO BID Ketoconazole 120 Ml Shampoo 1 Yani TP QTH Clonazepam 0.5 Mg Tablet 1 Tab PO BID Vital Signs Vital Signs Date Time Temp Pulse Resp B/P (MAP) Pulse Ox O2 Delivery O2 Flow Rate FiO2 09/18/18 11:16 Room Air 09/18/18 11:00 98.5 77 18 161/86 (111) 97 98.5 Labs Laboratory Tests Test 09/18/18 05:27 09/18/18 08:15 Sodium Level 141 mmol/L (136-145) Potassium Level 3.9 mmol/L (3.5-5.1) Chloride Level 105 mmol/L (98-107) Carbon Dioxide Level 25 mmol/L (21-32) Anion Gap 11 (6-14) Blood Urea Nitrogen 8 mg/dL (7-20) Creatinine 1.2 mg/dL (0.6-1.0) Estimated GFR (Cockcroft-Gault) 55.4 Glucose Level 93 mg/dL (70-99) Calcium Level 9.3 mg/dL (8.5-10.1) White Blood Count 7.3 x10^3/uL (4.0-11.0) Red Blood Count 3.14 x10^6/uL (3.50-5.40) Hemoglobin 10.2 g/dL (12.0-15.5) Hematocrit 29.9 % (36.0-47.0) Mean Corpuscular Volume 95 fL (79-100) Mean Corpuscular Hemoglobin 32 pg (25-35) Mean Corpuscular Hemoglobin Concent 34 g/dL (31-37) Red Cell Distribution Width 15.0 % (11.5-14.5) Platelet Count 328 x10^3/uL (140-400) Neutrophils (%) (Auto) 69 % (31-73) Lymphocytes (%) (Auto) 20 % (24-48) Monocytes (%) (Auto) 8 % (0-9) Eosinophils (%) (Auto) 3 % (0-3) Basophils (%) (Auto) 1 % (0-3) Neutrophils # (Auto) 5.1 x10^3uL (1.8-7.7) Lymphocytes # (Auto) 1.5 x10^3/uL (1.0-4.8) Monocytes # (Auto) 0.6 x10^3/uL (0.0-1.1) Eosinophils # (Auto) 0.2 x10^3/uL (0.0-0.7) Basophils # (Auto) 0.0 x10^3/uL (0.0-0.2) Laboratory Tests Test 09/18/18 05:27 09/18/18 08:15 Sodium Level 141 mmol/L (136-145) Potassium Level 3.9 mmol/L (3.5-5.1) Chloride Level 105 mmol/L (98-107) Carbon Dioxide Level 25 mmol/L (21-32) Anion Gap 11 (6-14) Blood Urea Nitrogen 8 mg/dL (7-20) Creatinine 1.2 mg/dL (0.6-1.0) Estimated GFR (Cockcroft-Gault) 55.4 Glucose Level 93 mg/dL (70-99) Calcium Level 9.3 mg/dL (8.5-10.1) White Blood Count 7.3 x10^3/uL (4.0-11.0) Red Blood Count 3.14 x10^6/uL (3.50-5.40) Hemoglobin 10.2 g/dL (12.0-15.5) Hematocrit 29.9 % (36.0-47.0) Mean Corpuscular Volume 95 fL (79-100) Mean Corpuscular Hemoglobin 32 pg (25-35) Mean Corpuscular Hemoglobin Concent 34 g/dL (31-37) Red Cell Distribution Width 15.0 % (11.5-14.5) Platelet Count 328 x10^3/uL (140-400) Neutrophils (%) (Auto) 69 % (31-73) Lymphocytes (%) (Auto) 20 % (24-48) Monocytes (%) (Auto) 8 % (0-9) Eosinophils (%) (Auto) 3 % (0-3) Basophils (%) (Auto) 1 % (0-3) Neutrophils # (Auto) 5.1 x10^3uL (1.8-7.7) Lymphocytes # (Auto) 1.5 x10^3/uL (1.0-4.8) Monocytes # (Auto) 0.6 x10^3/uL (0.0-1.1) Eosinophils # (Auto) 0.2 x10^3/uL (0.0-0.7) Basophils # (Auto) 0.0 x10^3/uL (0.0-0.2) Allergies Allergies Coded Allergies Type Severity Reaction Last Updated Verified No Known Drug Allergies 08/29/18 No Disposition/Orders: Other (TO SNF BED) Patient Instructions D/C PLANNING 31 MIN DELORES MOCK MD Sep 18, 2018 14:31
--- NOTE | 2018-09-18 14:33 | DISCH ---
DISCHARGE DISCHARGE INFORMATION: CONDITION ON DISCHARGE: Stable CODE STATUS: Code Status: Full PENITENTIARY: SNF STAY <30 DAYS: Yes HOSPICE: HOSPICE: No HOSPICE EVAL & TREAT: No LTAC: ADMIT TO LTAC: No POST DISCHARGE ORDERS: ACTIVITY ORDERS: Resume previous activity DIET AFTER DISCHARGE: Cardiac WOUND/INCISION CARE: Ice to area for comfort CHECKS AFTER DISCHARGE: CHECKS AFTER DISCHARGE: Check blood press - daily TREATMENT/EQUIPMENT ORDERS: Physical Therapy For: Evalulation/Treatment Occupational Therapy For: Evaluation/Treatment Speech Language Pathology For: Evaluation/Treatment DISCHARGE MEDICATIONS: Home Meds Reported Medications Vitamin E Acetate (VITAMIN E) 400 Unit Capsule, 800 UNIT PO BID, CAP 08/29/18 Risperidone Microspheres (RISPERDAL CONSTA) 37.5 Mg/2 Ml Disp.syrin, 50 MG IM Q2WKS, SYR 08/29/18 Olanzapine (OLANZAPINE) 5 Mg Tablet, 1 TAB PO BID, #30 TAB 2 Refills 08/29/18 Multivitamin (MULTIVITAMINS) 1 Each Tablet, 1 TAB PO DAILY, #90 TAB 3 Refills 08/29/18 Magnesium Hydroxide (MILK OF MAGNESIA) 400 Mg/5 Ml Oral.susp, 30 ML PO PRN DAILY PRN for CONSTIPATION, MISC 08/29/18 Lisinopril (LISINOPRIL) 20 Mg Tablet, 1 TAB PO HS, #30 TAB 5 Refills 08/29/18 Benztropine Mesylate (BENZTROPINE MESYLATE) 2 Mg Tablet, 1 TAB PO BID, #60 TAB 1 Refill 08/29/18 Ketoconazole (KETOCONAZOLE) 120 Ml Shampoo, 1 CARMELO TP QTH, #120 ML 3 Refills 08/29/18 Clonazepam (CLONAZEPAM) 0.5 Mg Tablet, 1 TAB PO BID, #60 TAB 1 Refill 08/29/18 DELORES MOCK MD Sep 18, 2018 14:33
[2018-09-18] MEDS ORDERED: IPRA3AMP29 NEB (14:37)
[2018-09-18] MEDS ORDERED: AMLO10TA6 PO (14:37)
[2018-09-18] MEDS ORDERED: AMOX1TAB58 PO (14:37)
[2018-09-18] MEDS ORDERED: CLON0.1T12 PO (14:37)
[2018-09-18 15:01] LABS: VANC TR 11.4 mcg/mL (10.0-20.0)
[2018-09-18] MEDS: VANCOMYCIN PER PHARMACY MC PRN (15:11)
[2018-09-19] MEDS ORDERED: KETOCONAZOLE 2% SHAMPOO 120ML BOTTLE. TP SCH (21:00)
[2018-09-28] MEDS ORDERED: risperiDONE MICROSPHERES 37.5 MG/2 ML DISP.SYRIN. IM SCH (09:00)
== END 2018-09-18 15:30 | DRG 871 ==
LOC: ER 15:39 → 5 NORTH 16:53 → ER 18:40
PROVIDERS: ADMIT Internal Medicine; ATTEND Internal Medicine
DX: A41.9 Sepsis, unspecified organism (principal); J18.1 Lobar pneumonia, unspecified organism; G93.40 Encephalopathy, unspecified; E87.0 Hyperosmolality and hypernatremia; I10 Essential (primary) hypertension; F20.9 Schizophrenia, unspecified; F03.90 Unspecified dementia, unspecified severity, without behavioral disturbance, psychotic disturbance, mood disturbance, and anxiety; K59.00 Constipation, unspecified; Y95 Nosocomial condition; I16.0 Hypertensive urgency; E87.6 Hypokalemia; R09.02 Hypoxemia
CPT/HCPCS: 36415; 70450; 71045; 80048; 80053; 80202; 82607; 83605; 83690; 83735; 83880; 84443; 84484; 85025; 87040; 87641; 90471; 90756; 93005; 94640; 94760; 96365; 96368; 96375; J1644; J2543; J3370; J3490; J7030; J7040; J7050; J7620; 97110; 97116; 99285-25; Q2035

== ENCOUNTER → 2018-10-04 | Outpatient (CLI) | payer MEDICAID ==
[2018-09-18 11:00] VITALS: BP 161/86
[~2018-10-04] MED LIST changes: +AMLO10TA6 PO; +AMOX1TAB58 PO; +CLON0.1T12 PO; +IPRA3AMP29 NEB
--- NOTE | 2018-10-16 12:52 | EEG ---
DATE OF SERVICE: 10/04/2018 EEG NUMBER: [id number] OBJECTIVE: This is a 58-year-old female patient had episodes of mental status changes. EEG was requested to evaluate cerebral activity and help rule out seizure. METHODS: Twenty electrodes were applied according to the international 10-20 electrode placement system. EKG monitoring, hyperventilation, intermittent photic stimulation, monopolar and bipolar montages are routinely utilized. The record was obtained on a digital system with video monitoring. FINDINGS: 1. Background: The patient was recorded in the awake and drowsy states. No actual sleep state was recorded. The overall background amplitude is 5-15 microvolts. A posterior dominant rhythm of 8-10 Hz is observed. 2. Abnormalities: No specific epileptiform discharge or electrographic seizure is seen. No focal or diffuse slowing. 3. Activation: Hyperventilation was performed with poor efforts. Intermittent photic stimulation was performed with photic driving. IMPRESSION: This EEG is within the normal limits of the study for the awake and drowsy states. No actual sleep state was recorded. No focal, lateralizing, specific epileptiform discharge or electrographic seizure is seen. SHAMAR ENAMORADO MD DR: PILI/emily JOB#: [id number] / [id number] SIRI
== END | disposition home or self-care (01) ==
LOC: RT 09:15
PROVIDERS: ATTEND Psychiatry & Neurology Neurology
DX: R41.82 Altered mental status, unspecified (principal); R06.4 Hyperventilation
CPT/HCPCS: 95816